=== PATIENT | male | born 1950 | race Caucasian/White ===

== ENCOUNTER 2016-11-04 17:57 | Emergency (ER) | payer MEDICARE, BC ==
[~2016-11-04] VITALS: Ht 175.3 cm; Wt 82.7 kg
[~2016-11-04 17:57] MED LIST: ALLEGRA 180MG180 MG PO; ASPIRIN E.C. 8181 MG PO; BRILINTA90 MG PO; CYMBALTA 60MG60 MG PO; FLEXERIL5 MG PO; LASIX 20MG TABL20 MG PO; LEVAQUIN 5500 MG/TA1 PO; LOPRESSOR 225 MG/TAB PO; MONOPRIL20 MG PO; NITRO-DUR0.2 MG/PAT TD; NITROSTAT0.4 MG/TAB SL; NORVASC 5MG5 MG/TAB PO; NOVLOG SQ; NOVOLOG 100U100 U/M1 SC; PLAVIX 75MG TAB75 MG PO; PRINIVIL10 MG PO; REPATHA SU140 MG/1 M SQ; RISPERDAL 1M1 MG/TAB PO; TOPROL XL 25MG25 MG PO; TOPROL XL 50MG50 MG PO; ULTRAM 50MG TAB50 MG PO; VITAMIN D 50,1.25 MG PO; XANAX .25M0.25 MG/TA PO
[2016-11-04 18:02] VITALS: BP 139/66; TEMP 98.2
[2016-11-04] MEDS ORDERED: DOXYCYCLINE 10100 MG PO (18:10)
[2016-11-04] MEDS ORDERED: NORCO 325 MG-51 TAB PO (20:03)
[2016-11-04 20:05] VITALS: PULSE 71
== END 2016-11-04 20:05 | disposition home or self-care (01) ==
LOC: COL.ER 17:57
DX: S83.91XA Sprain of unspecified site of right knee, initial encounter (principal); I11.0 Hypertensive heart disease with heart failure; I50.9 Heart failure, unspecified; I25.10 Atherosclerotic heart disease of native coronary artery without angina pectoris; E11.9 Type 2 diabetes mellitus without complications; Z79.4 Long term (current) use of insulin; Z79.82 Long term (current) use of aspirin; Z79.02 Long term (current) use of antithrombotics/antiplatelets; X50.0XXA Overexertion from strenuous movement or load, initial encounter; Y92.009 Unspecified place in unspecified non-institutional (private) residence as the place of occurrence of the external cause

== ENCOUNTER 2017-04-01 11:00 | Outpatient (RCR) | payer MEDICARE, BC ==
[~2017-04-01 11:00] MED LIST changes: +DOXYCYCLINE 10100 MG PO; +NORCO 325 MG-51 TAB PO
== END 2017-04-05 | disposition home or self-care (01) ==
LOC: WSOT
DX: Z47.89 Encounter for other orthopedic aftercare (principal); G56.03 Carpal tunnel syndrome, bilateral upper limbs; E10.9 Type 1 diabetes mellitus without complications; Z79.4 Long term (current) use of insulin; Z98.890 Other specified postprocedural states
CPT/HCPCS: G8987-GO; G8988-GO

== ENCOUNTER 2021-04-18 13:47 | Inpatient (IN) | payer MEDICARE, BC ==
[2021-04-17 17:54] VITALS: O2SAT 94
[2021-04-17 17:58] VITALS: O2SAT 99
[2021-04-17 18:01] VITALS: O2SAT 95
[2021-04-17 18:07] VITALS: O2SAT 86
[2021-04-17 18:09] VITALS: O2SAT 85
[2021-04-17 18:13] VITALS: O2SAT 52
[~2021-04-18] VITALS: Ht 175.3 cm; Wt 85.1 kg
[2021-04-18] VITALS (219 sets, daily range): BP systolic 126; BP diastolic 71; PULSE 97; TEMP 98.2; O2SAT 61–100
[2021-04-18 14:19] LABS: HEMATOCRIT 40.1 % (42.0-52.0); HEMOGLOBIN 13.2 g/dl (13.5-18.0); MEAN CELL VOLUME 94 fl (80.0-100.0); MEAN CORPUSCULAR HEMOGLOBIN 31 pg (27-31); MEAN CORPUSCULAR HGB CONC 33 g/dl (33.0-37.0); PLATELET COUNT 164 K/mm3 (130-400); RED BLOOD COUNT 4.29 M/mm3 (4.20-5.60); REDCELL DISTRIBUTION WIDTH-CV 13.9 % (11.5-14.5)
[2021-04-18 14:34] LABS: ACETONE,SERUM SMALL
[2021-04-18 14:37] LABS: ALANINE AMINOTRANSFERASE 136 U/L (0-55); ALBUMIN 3.9 gm/dL (3.4-4.8); ALKALINE PHOSPHATASE 99 U/L (40-150); ANION GAP 29 mmol/L (7-16); AST,SGOT 183 U/L (5-34); BILIRUBIN,TOTAL 1.1 mg/dL (0.2-1.2); BLOOD UREA NITROGEN 93 mg/dL (8-26); CALCIUM 9.1 mg/dL (8.4-10.2); CHLORIDE 90 mmol/L (98-107); CREATININE, serum 4.23 mg/dL (0.72-1.25); LIPASE 33 U/L (8-78); SODIUM 129 mmol/L (136-145); TOTAL PROTEIN 6.7 gm/dL (6.2-8.1)
[2021-04-18 14:48] LABS: TROPONIN-I 17.333 ng/mL (0.00-0.033)
[2021-04-18 14:49] LABS: CARBON DIOXIDE 10 mmol/L (23-31); GLUCOSE 729 mg/dL (70-99)
[2021-04-18 15:28] LABS: BAND 6 % (0-10); LYMPHOCYTE 2 % (20.0-51.0); NEUTROPHILS 89 % (42.0-75.2); PLATELET ESTIMATE NORMAL (NORMAL)
[2021-04-18 16:02] LABS: INR 1.3 (0.8-3.0)
[2021-04-18 16:04] LABS: PARTIAL THROMBOPLASTIN TIME 24.4 SECONDS (26.0-37.0)
--- NOTE | 2021-04-18 16:44 | NUR ---
PT arrived via stretcher from ED with nurse. PT was able to move himself over to the ICU bed with minimal assistance. PT was alert and orientated and appeared in no distress. GTTS on arrival are HEPARIN 1000U/HR and INSULIN 5 U/HR. VSS. PT is NPO but allowed ice chips. Per verbal orders: NS to run at 100 ml/hr until glucose levels are below 250- then initiate D5 1/2 NS at 75ml/hr . central line consent was aquired.
[2021-04-18 18:09] LABS: CALCIUM 8.4 mg/dL (8.4-10.2); CREATININE, serum 4.12 mg/dL (0.72-1.25); MAGNESIUM 2.8 mg/dL (1.6-2.6); PHOSPHOROUS 6.4 mg/dL (2.3-4.7)
[2021-04-18 18:22] LABS: POTASSIUM 5.8 mmol/L (3.5-4.5); TROPONIN-I 13.521 ng/mL (0.00-0.033)
--- NOTE | 2021-04-18 20:00 | NUR ---
PATIENT STATES THAT HE IS ABLE TO VOID WITHOUT DIFFICULTY DOES HAVE ORDERS FOR CATHETER BUT NO CURTAIN PRESENT IN ROOM AND WILL NOT BE AVAILABLE UNTIL AM
[2021-04-18 20:33] LABS: CALCIUM 8.1 mg/dL (8.4-10.2); CREATININE, serum 3.85 mg/dL (0.72-1.25); POTASSIUM 4.7 mmol/L (3.5-4.5)
[2021-04-18 20:42] LABS: TROPONIN-I 11.968 ng/mL (0.00-0.033)
[2021-04-18 23:07] LABS: COLLECTION METHOD CLEAN CATCH
[2021-04-18 23:12] LABS: MUCOUS Present (NOT PRESENT); PH 5 (5-8); SQUAMOUS EPITHELIAL 0-2 /hpf (0-10); URINE APPEARANCE Clear (CLEAR/HAZY); URINE BACTERIA None Seen /hpf (NONE SEEN); URINE BILIRUBIN Negative (NEGATIVE); URINE BLOOD 2+ (NEGATIVE); URINE COLOR Yellow (YELLOW); URINE GLUCOSE 3+ (NEGATIVE); URINE KETONE 1+ (NEGATIVE); URINE LEUKOCYTE ESTERASE Negative (NEGATIVE); URINE NITRATE Negative (NEGATIVE); URINE PROTEIN(semi-quant) Negative (NEGATIVE); URINE RBC 0-2 /hpf (0-2); URINE UROBILINOGEN Negative (NEGATIVE)
[2021-04-19] VITALS (592 sets, daily range): BP systolic 108–166; BP diastolic 50–89; PULSE 74–84; TEMP 98.7–99.2; O2SAT 30–100
[2021-04-19 00:21] LABS: CALCIUM 8.5 mg/dL (8.4-10.2); CREATININE, serum 3.6 mg/dL (0.72-1.25); POTASSIUM 4.2 mmol/L (3.5-4.5)
--- NOTE | 2021-04-19 01:26 | NUR ---
PATIENT IVF CHANGED TO S5 1/2 NS PER ORDERS DUE TO BLOOD SUGAR NOW LESS THAN 250
--- NOTE | 2021-04-19 03:00 | NUR ---
per insulin protocol insuling drip on hold for 30 minutes at this time
--- NOTE | 2021-04-19 03:59 | NUR ---
per insulin drip protocol restarted insulin drip at 2units
[2021-04-19 04:13] LABS: BASO % 0.1 % (0.0-2.0); GRAN # 15.2 K/mm3 (1.4-6.5); GRAN % 86.2 % (42.2-75.2); HEMOGLOBIN 11.5 g/dl (13.5-18.0); LYMPH # 0.9 K/mm3 (1.2-3.4); MEAN CORPUSCULAR HEMOGLOBIN 31 pg (27-31); MEAN CORPUSCULAR HGB CONC 35 g/dl (33.0-37.0); MEAN PLATELET VOLUME 10.8 fl (7.4-10.4); MONO # 1.4 K/mm3 (0.1-0.6); MONO % 7.7 % (1.7-9.3); PLATELET COUNT 134 K/mm3 (130-400); RED BLOOD COUNT 3.68 M/mm3 (4.20-5.60); REDCELL DISTRIBUTION WIDTH-CV 13.6 % (11.5-14.5)
[2021-04-19 04:23] LABS: CALCIUM 8.6 mg/dL (8.4-10.2); CREATININE, serum 3.32 mg/dL (0.72-1.25); POTASSIUM 4.1 mmol/L (3.5-4.5)
[2021-04-19 04:29] LABS: HEMATOCRIT 32.7 % (42.0-52.0); MEAN CELL VOLUME 89 fl (80.0-100.0)
--- NOTE | 2021-04-19 05:05 | NUR ---
0501 call to check status of heparin anti-xa results due to being over an hour since being sent, stated that it was getting ready to post right now per lab. 0505 noted results and drip titration as per protocol with next heparin anti xa lab to be obtained at 1100 am today
--- NOTE | 2021-04-19 07:00 | NUR ---
Assumed care of pt. All lines, GTTs check and verified. VSS.
[2021-04-19 08:51] LABS: CALCIUM 8.8 mg/dL (8.4-10.2); CREATININE, serum 3.17 mg/dL (0.72-1.25); POTASSIUM 4.3 mmol/L (3.5-4.5)
--- NOTE | 2021-04-19 09:00 | NUR ---
PT peripheral IV right AC is occluded. Was removed and monitored for bleeding. Tip intact but bent. Covered with guaze dressing and tape.
--- NOTE | 2021-04-19 11:06 | NUR ---
Heparin lab results came back as 0.0. Following Low dose Heparin protocol PT was bolused 1000 Units and current GTT rate increased by 2.5. Next HEPXA scheduled [id number]. Will continue to monitor for bleeding.
[2021-04-19 11:39] LABS: CALCIUM 8.7 mg/dL (8.4-10.2); CREATININE, serum 3.02 mg/dL (0.72-1.25); POTASSIUM 4.5 mmol/L (3.5-4.5)
--- NOTE | 2021-04-19 12:59 | NUR ---
District Sales Leader visited briefly with patient. Nothing else needed at this time.
--- NOTE | 2021-04-19 14:19 | NUR ---
SW met with patient to complete intake. Patient states that he lives in [facility] with his spouse Isabell [phone]. Patient provides that he does not utilize DME and is independent with ADL's. Patient provides that his PCP is Dr. Ham, pharmacy is [facility]. Patient provide that his spouse is his DPOA-HC, plan is to return to his home upon discharge. Patient had not questions or concerns. SW will continue to follow. DC plan: home with spouse
[2021-04-19 18:53] LABS: CALCIUM 8.4 mg/dL (8.4-10.2); CREATININE, serum 2.69 mg/dL (0.72-1.25); POTASSIUM 4.3 mmol/L (3.5-4.5)
[2021-04-20] VITALS (276 sets, daily range): BP systolic 122–162; BP diastolic 56–95; PULSE 80–88; TEMP 97.9–98.8; O2SAT 100
--- NOTE | 2021-04-20 01:50 | NUR ---
RESULTS OF HEPARIN XA OBTAINED HEPARIN GTT ADJUSTED PER ORDERS AT THIS TIME NEXT HEPARIN XA DUE AT 0750
--- NOTE | 2021-04-20 07:00 | NUR ---
RECEIVED REPORT FROM PITO MILIAN. PT SLEEPING IN BED ON RA. VSS. CALL LIGHT WITHIN REACH. SEE GTT FLOWSHEETS.
[2021-04-20 08:31] LABS: BASO % 0.1 % (0.0-2.0); EOS % 0.1 % (0.0-4.0); GRAN # 13.6 K/mm3 (1.4-6.5); GRAN % 86.4 % (42.2-75.2); HEMOGLOBIN 12.3 g/dl (13.5-18.0); LYMPH % 6.1 % (20.0-51.0); MEAN CELL VOLUME 91 fl (80.0-100.0); MEAN CORPUSCULAR HEMOGLOBIN 31 pg (27-31); MEAN CORPUSCULAR HGB CONC 34 g/dl (33.0-37.0); MEAN PLATELET VOLUME 11.7 fl (7.4-10.4); MONO # 1.1 K/mm3 (0.1-0.6); MONO % 6.8 % (1.7-9.3); PLATELET COUNT 131 K/mm3 (130-400); RED BLOOD COUNT 3.94 M/mm3 (4.20-5.60); REDCELL DISTRIBUTION WIDTH-CV 13.7 % (11.5-14.5)
[2021-04-20 08:37] LABS: HEMATOCRIT 35.8 % (42.0-52.0)
[2021-04-20 08:40] LABS: CALCIUM 8.2 mg/dL (8.4-10.2); CREATININE, serum 2.34 mg/dL (0.72-1.25); POTASSIUM 4.3 mmol/L (3.5-4.5)
--- NOTE | 2021-04-20 10:39 | NUR ---
REPORT CALLED TO PITO VIVEROS. PT TRANSFERRED VIA WC ON RA. ALL PERSONAL BELONGINGS SENT WITH PT. INSULIN PUMP IN PT'S BELONGING BAGS.
--- NOTE | 2021-04-20 11:15 | NUR ---
Patient to room 331 by wheelchair from the ICU. Nurse oriented the patient to location, room and call light. A&Ox4. VSS. IV CDI, fluids infusing. Denies pain and discomfort. Urinal at the bedside. No further needs expressed. Call light within reach
--- NOTE | 2021-04-20 17:51 | NUR ---
Patient has been resting in bed since coming up to the floor. A&Ox4. VSS. IV intact, old draniage, fluids infusing. Denies pain and discomfort. Independent with the urinal. No further needs expressed. Call light within
--- NOTE | 2021-04-20 20:30 | NUR ---
PT RESTING IN BED. NO DISTRESS. HEPARIN GTT INFUSING AT 12CC/H AND NS INFUSING AT 60CC/HR TO RIGHT FEMORAL LINE.
[2021-04-21 04:23] VITALS: BP 138/77; PULSE 85; TEMP 97.9
--- NOTE | 2021-04-21 05:30 | NUR ---
HEPARIN GTT CHANGED TO 10CC/HR PER PROTOCOL. NEXT HEPXA IS 1130.
--- NOTE | 2021-04-21 05:52 | NUR ---
ACCUCHECK 65 THIS AM. JUICE GIVEN.
[2021-04-21 06:32] LABS: BASO % 0.2 % (0.0-2.0); EOS % 0.1 % (0.0-4.0); GRAN # 10.5 K/mm3 (1.4-6.5); GRAN % 81.2 % (42.2-75.2); LYMPH # 1.1 K/mm3 (1.2-3.4); LYMPH % 8.7 % (20.0-51.0); MEAN CELL VOLUME 92 fl (80.0-100.0); MEAN CORPUSCULAR HEMOGLOBIN 32 pg (27-31); MEAN CORPUSCULAR HGB CONC 35 g/dl (33.0-37.0); MEAN PLATELET VOLUME 11.6 fl (7.4-10.4); MONO # 1.1 K/mm3 (0.1-0.6); MONO % 8.7 % (1.7-9.3); PLATELET COUNT 121 K/mm3 (130-400); RED BLOOD COUNT 3.78 M/mm3 (4.20-5.60); REDCELL DISTRIBUTION WIDTH-CV 13.4 % (11.5-14.5)
[2021-04-21 06:39] LABS: HEMATOCRIT 34.6 % (42.0-52.0)
[2021-04-21 06:50] LABS: ALBUMIN 2.8 gm/dL (3.4-4.8); BILIRUBIN,TOTAL 1.2 mg/dL (0.2-1.2); CALCIUM 8.2 mg/dL (8.4-10.2); CREATININE, serum 1.71 mg/dL (0.72-1.25); MAGNESIUM 2.4 mg/dL (1.6-2.6); POTASSIUM 3.7 mmol/L (3.5-4.5); TOTAL PROTEIN 5.2 gm/dL (6.2-8.1)
--- NOTE | 2021-04-21 06:55 | NUR ---
awake resting in bed, bedside shift report received from PITO Mascorro
--- NOTE | 2021-04-21 07:50 | NUR ---
appears to be dozing, awakened and full assessment completed, see interventions for further info, appears to be short of breath after moving around in bed, instructed on ordering breakfast
[2021-04-21 08:00] VITALS: BP 136/69; PULSE 86; TEMP 98.4
--- NOTE | 2021-04-21 08:40 | NUR ---
sitting up on side of bed eating breakfast, denies needs
--- NOTE | 2021-04-21 09:32 | NUR ---
Initial visit; Patient thanked Harness Tier for looking in on him and offering God's blessings though declined spiritual care.
--- NOTE | 2021-04-21 10:39 | NUR ---
appears to be dozing, IV fluids stopped at this time
[2021-04-21 11:17] VITALS: BP 135/67; PULSE 85; TEMP 97.9
--- NOTE | 2021-04-21 11:30 | NUR ---
informed patient to let nurse know when he begins to eat so insulin can be given, verbalizes understanding
[2021-04-21 12:20] LABS: ARTERIAL BLD GAS O2 SATURATION 72.5 % (92-100); ARTERIAL BLOOD GAS HCO3 11.1 meq/L (22-26); ARTERIAL BLOOD GAS PCO2 27.7 mmHg (35-45); ARTERIAL BLOOD GAS PO2 48.1 mmHg (80-100); ARTERIAL BLOOD GAS pH 7.22 (7.35-7.45)
--- NOTE | 2021-04-21 12:51 | NUR ---
shift report given to PITO Holloway
--- NOTE | 2021-04-21 15:00 | NUR ---
Removed R femoral catheter per orders from physican assistant brand manager after PICC line placed to [facility]. Pt tolerated well, pressure held for 5 minutes, no signs of bleeding, denies needs, clean dressing applied, will continue to monitor.
[2021-04-21 15:34] VITALS: BP 136/71; PULSE 85; TEMP 98.5
[2021-04-21 20:21] VITALS: BP 135/55; BP 195/55; PULSE 86; TEMP 99
--- NOTE | 2021-04-21 21:13 | NUR ---
Patient assessed around 1999. Alert and oriented x 4, and able to make needs known. Denies having pain and discomfort at this time. PICC to RUE. Heparin drip running per orders. HepXa was goal, recheck in the morning, per protocol. Telemetry in place. Voices no questions, needs, or concerns at this time. In bed with call light within reach.
[2021-04-22] VITALS (7 sets, daily range): BP systolic 107–140; BP diastolic 55–78; PULSE 84–101; TEMP 97.8–99
--- NOTE | 2021-04-22 06:05 | NUR ---
Patient has denied having pain and discomfort this shift. Continues on Heparin drip per orders. Labs obtained from PICC per protocol. Voices no questions, needs, or concerns at this time. In bed with call light within reach.
[2021-04-22 07:02] LABS: HEMOGLOBIN 11.6 g/dl (13.5-18.0); MEAN CELL VOLUME 91 fl (80.0-100.0); MEAN CORPUSCULAR HEMOGLOBIN 31 pg (27-31); MEAN CORPUSCULAR HGB CONC 34 g/dl (33.0-37.0); MEAN PLATELET VOLUME 12.2 fl (7.4-10.4); PLATELET COUNT 130 K/mm3 (130-400); RED BLOOD COUNT 3.74 M/mm3 (4.20-5.60); REDCELL DISTRIBUTION WIDTH-CV 13.5 % (11.5-14.5)
[2021-04-22 07:04] LABS: HEMATOCRIT 33.9 % (42.0-52.0)
[2021-04-22 07:21] LABS: CALCIUM 8.2 mg/dL (8.4-10.2); CREATININE, serum 1.6 mg/dL (0.72-1.25); POTASSIUM 3.6 mmol/L (3.5-4.5)
[2021-04-22 08:00] LABS: BAND 3 % (0-10); LYMPHOCYTE 8 % (20.0-51.0); NEUTROPHILS 82 % (42.0-75.2)
[2021-04-22 08:01] LABS: PLATELET ESTIMATE NORMAL (NORMAL)
--- NOTE | 2021-04-22 11:06 | NUR ---
sample shoe inspector and reworker met with patient after the physician rounding. Patient is in agreement with PT recommendation and feels as if he is strong enough to return home without any extra supports. Patient will trial his home insulin regimen and depending on how his BGL looks after lunch he will return back home.
[2021-04-22] MEDS ORDERED: NOVOLOG 100U100 U/M1 SQ (11:18)
--- NOTE | 2021-04-22 11:26 | NUR ---
PT RESTING IN BED ATE 50% OF BREAKFAST. REATTACHED INSULIN PUMP AND SIGNED CONTRACT WITH PHARMACY TO SELF MONITOR INSULIN PUMP. PLAN ON DISCHARGE LATER TODAY IF OK WITH CARDS.
--- NOTE | 2021-04-22 19:53 | NUR ---
Patient assessed at this time. Alert and oriented. Denies pain and discomfort. PICC to RUE. HRR. LS CTA in upper lobes, diminished in lower. Respirations even and unlabored. Voices no questions, needs, or concerns at this time. In bed with call light within reach.
[2021-04-23 03:47] VITALS: BP 153/68; PULSE 92; TEMP 98.7
--- NOTE | 2021-04-23 05:26 | NUR ---
Patient has denied pain and discomfort this shift. Voices no questions, needs, or concerns at this time. In bed with call light within reach.
[2021-04-23 06:48] LABS: BASO % 0.1 % (0.0-2.0); EOS # 0.1 K/mm3 (0.0-0.7); EOS % 1.2 % (0.0-4.0); GRAN # 5.8 K/mm3 (1.4-6.5); GRAN % 68.5 % (42.2-75.2); HEMOGLOBIN 11.4 g/dl (13.5-18.0); LYMPH # 1.3 K/mm3 (1.2-3.4); LYMPH % 15.6 % (20.0-51.0); MEAN CELL VOLUME 92 fl (80.0-100.0); MEAN CORPUSCULAR HEMOGLOBIN 32 pg (27-31); MEAN CORPUSCULAR HGB CONC 34 g/dl (33.0-37.0); MEAN PLATELET VOLUME 11.8 fl (7.4-10.4); MONO # 1.1 K/mm3 (0.1-0.6); MONO % 13.2 % (1.7-9.3); PLATELET COUNT 149 K/mm3 (130-400); REDCELL DISTRIBUTION WIDTH-CV 13.7 % (11.5-14.5)
[2021-04-23 06:50] LABS: HEMATOCRIT 33.2 % (42.0-52.0)
[2021-04-23 07:08] LABS: CALCIUM 8.4 mg/dL (8.4-10.2); CREATININE, serum 1.61 mg/dL (0.72-1.25); POTASSIUM 3.7 mmol/L (3.5-4.5)
[2021-04-23 07:59] VITALS: BP 132/63; PULSE 92; TEMP 98.5
--- NOTE | 2021-04-23 08:36 | NUR ---
PT SITTING UP IN BED EATING BREAKFAST. INSULIN PUMP USED BY PT TO BOLUS AND ADMINISTER BASAL RATE. PT DENIES NEEDS. EATING AND DRINKING WITHOUT N/V.
[2021-04-23 11:26] VITALS: BP 137/65; PULSE 94; TEMP 98.3
--- NOTE | 2021-04-23 13:14 | NUR ---
PT HAS AN INSULIN PUMP AND UNABLE TO SCANN SO PT'S OWN MED WAS MANUALLY RECORDED.
--- NOTE | 2021-04-23 15:59 | NUR ---
DISCHARGE INSTSRUCTIONS REVIEWED WITH PT. PT LEFT WITH LILIANE BAEZ.
--- NOTE | 2021-04-23 16:16 | NUR ---
Robotics Application Engineer was notified by RNJeremiah that patient cannot reach his for a ride home and that patient reported he had not had contact with his in two days. SW met with patient to follow up on this. Patient states he has not heard from his in two days, which is not normal for her. Patient reports she has been sick with the "flu" for a couple weeks now. Patient is agreeable to let SW contact [facility] [employer] for a welfare check. NILES contacted [facility] and requested welfare check. NILES received a phone call from Sgt Etienne who advised he was with patient's , Isabell and she appeared to be ill, but refused to be taken to ED by ambulance. Sgt Etienne advised he did not think patient was safe to drive at this time. NILES reviewed the above with patient who advised he is worried about Isabell, but will call an ambulance for her when he gets home. NILES arranged a taxi ride for patient who advised he can pay for a ride home. NILES contacted Isabell on her cell phone (ph#[phone]) and she seemed to be out of breathe. NILES encouraged Isabell to contact 911 if she felt there was an emergency. NILES advised Isabell that patient was discharging home soon via taxi. NILES contacted Dr. Washington's office and left a message. NILES also spoke with Rufina at [facility] who advised she responded to welfare check earlier in the afternoon and patient refused to go to ED.
== END 2021-04-23 14:30 | disposition home or self-care (01) | DRG 280 ==
LOC: COL.ER 13:47 → ICU 15:15 → SURG 15:15
PROVIDERS: Emergency Medicine; Internal Medicine; Physician Assistant; ADMIT Student in an Organized Health Care Education/Training Program
PROC: 06HM33Z Insertion of Infusion Device into Right Femoral Vein, Percutaneous Approach (ICD-10-PCS; principal; 2021-04-18)
PROC: 02HV33Z Insertion of Infusion Device into Superior Vena Cava, Percutaneous Approach (ICD-10-PCS; 2021-04-21)
DX: I21.4 Non-ST elevation (NSTEMI) myocardial infarction (principal); E10.10 Type 1 diabetes mellitus with ketoacidosis without coma; N17.9 Acute kidney failure, unspecified; N18.4 Chronic kidney disease, stage 4 (severe); I50.22 Chronic systolic (congestive) heart failure; R65.10 Systemic inflammatory response syndrome (SIRS) of non-infectious origin without acute organ dysfunction; I25.10 Atherosclerotic heart disease of native coronary artery without angina pectoris; I25.5 Ischemic cardiomyopathy; G31.84 Mild cognitive impairment of uncertain or unknown etiology; E10.22 Type 1 diabetes mellitus with diabetic chronic kidney disease; F32.A Depression, unspecified; E87.5 Hyperkalemia; E86.0 Dehydration; F41.9 Anxiety disorder, unspecified; I27.20 Pulmonary hypertension, unspecified; E78.5 Hyperlipidemia, unspecified; E10.319 Type 1 diabetes mellitus with unspecified diabetic retinopathy without macular edema; Z20.822 Contact with and (suspected) exposure to COVID-19; Z79.82 Long term (current) use of aspirin; Z95.1 Presence of aortocoronary bypass graft; Z88.2 Allergy status to sulfonamides; Z96.41 Presence of insulin pump (external) (internal)
CPT/HCPCS: 99223-AI; 99232-AI; 99233-AI; 99239; C1751; C1892; J0610; J1644; J1815; J2405; J7030

== ENCOUNTER 2021-04-24 11:05 | Inpatient (IN) | payer MEDICARE, BC ==
[~2021-04-24] VITALS: Ht 175.3 cm; Wt 86.4 kg
[2021-04-24] VITALS (205 sets, daily range): BP systolic 105–141; BP diastolic 54–77; PULSE 87–91; TEMP 98.1–98.7; O2SAT 92–100
[~2021-04-24 11:05] MED LIST changes: +NOVOLOG 100U100 U/M1 SQ
[2021-04-24 11:40] LABS: HEMOGLOBIN 11.8 g/dl (13.5-18.0); MEAN CORPUSCULAR HEMOGLOBIN 31 pg (27-31); MEAN CORPUSCULAR HGB CONC 32 g/dl (33.0-37.0); MEAN PLATELET VOLUME 11.6 fl (7.4-10.4); PLATELET COUNT 213 K/mm3 (130-400); RED BLOOD COUNT 3.76 M/mm3 (4.20-5.60); REDCELL DISTRIBUTION WIDTH-CV 14.3 % (11.5-14.5)
[2021-04-24 11:41] LABS: HEMATOCRIT 36.5 % (42.0-52.0); MEAN CELL VOLUME 97 fl (80.0-100.0)
[2021-04-24 11:59] LABS: BAND 9 % (0-10); LYMPHOCYTE 3 % (20.0-51.0); NEUTROPHILS 86 % (42.0-75.2); PLATELET ESTIMATE NORMAL (NORMAL)
[2021-04-24 12:00] LABS: ALANINE AMINOTRANSFERASE 57 U/L (0-55); ALKALINE PHOSPHATASE 111 U/L (40-150); ANION GAP 26 mmol/L (7-16); AST,SGOT 24 U/L (5-34); BILIRUBIN,TOTAL 1.3 mg/dL (0.2-1.2); BLOOD UREA NITROGEN 46 mg/dL (8-26); CALCIUM 8.5 mg/dL (8.4-10.2); CHLORIDE 99 mmol/L (98-107); CREATININE, serum 2.55 mg/dL (0.72-1.25); LIPASE 22 U/L (8-78); SODIUM 135 mmol/L (136-145)
[2021-04-24 12:12] LABS: GLUCOSE 662 mg/dL (70-99); POTASSIUM 6.1 mmol/L (3.5-4.5)
[2021-04-24 12:13] LABS: CARBON DIOXIDE 10 mmol/L (23-31)
[2021-04-24 12:14] LABS: ACETONE,SERUM MODERATE
[2021-04-24 17:09] LABS: CALCIUM 8.3 mg/dL (8.4-10.2); CREATININE, serum 2.4 mg/dL (0.72-1.25); POTASSIUM 5.2 mmol/L (3.5-4.5)
[2021-04-24 19:58] LABS: CALCIUM 8.3 mg/dL (8.4-10.2); CREATININE, serum 2.49 mg/dL (0.72-1.25); MAGNESIUM 2.4 mg/dL (1.6-2.6); PHOSPHOROUS 3.6 mg/dL (2.3-4.7)
[2021-04-24 21:50] LABS: CALCIUM 8.4 mg/dL (8.4-10.2); CREATININE, serum 2.49 mg/dL (0.72-1.25); POTASSIUM 4.1 mmol/L (3.5-4.5)
[2021-04-24 23:55] LABS: CALCIUM 8.7 mg/dL (8.4-10.2); CREATININE, serum 2.33 mg/dL (0.72-1.25); POTASSIUM 4.6 mmol/L (3.5-4.5)
[2021-04-25] VITALS (486 sets, daily range): BP systolic 107–152; BP diastolic 54–70; PULSE 77–91; TEMP 98.1–98.5; O2SAT 77–100
[2021-04-25 02:59] LABS: CALCIUM 8.4 mg/dL (8.4-10.2); CREATININE, serum 2.2 mg/dL (0.72-1.25); POTASSIUM 4.1 mmol/L (3.5-4.5)
[2021-04-25 05:10] LABS: HEMOGLOBIN 10.5 g/dl (13.5-18.0); MEAN CELL VOLUME 94 fl (80.0-100.0); MEAN CORPUSCULAR HEMOGLOBIN 32 pg (27-31); MEAN CORPUSCULAR HGB CONC 34 g/dl (33.0-37.0); MEAN PLATELET VOLUME 10.6 fl (7.4-10.4); PLATELET COUNT 213 K/mm3 (130-400); RED BLOOD COUNT 3.28 M/mm3 (4.20-5.60); REDCELL DISTRIBUTION WIDTH-CV 14.4 % (11.5-14.5)
[2021-04-25 05:26] LABS: CALCIUM 8.3 mg/dL (8.4-10.2); CREATININE, serum 2.19 mg/dL (0.72-1.25); POTASSIUM 4.3 mmol/L (3.5-4.5)
[2021-04-25 05:43] LABS: HEMATOCRIT 30.7 % (42.0-52.0)
[2021-04-25 05:47] LABS: BAND 2 % (0-10); LYMPHOCYTE 10 % (20.0-51.0); NEUTROPHILS 77 % (42.0-75.2)
[2021-04-25 05:48] LABS: ANISOCYTOSIS 2+; HYPOCHROMIA 2+
--- NOTE | 2021-04-25 13:30 | NUR ---
Dispatch Officer met with patient to discuss discharge planning. Patient is a readmit and was discharged on 04/23/21. SW asked patient what brought him back to the hospital and he stated "my is incapacitated at home". This SW met with patient on 04/23/21 (see previous note for further detail) and patient had reported his was sick. SW asked patient if his was okay at home and he then stated yes, she was feeling much better. Patient lives outside of [place] with his , Isabell (ph#[phone]) and sees Dr. Washington for primary care. Patient obtains medications from [facility] and advised he has no difficulty obtaining medications. Patient uses diabetic testing equipment at home and no other DME. Patient reports independence with ADLS. Patient has Advance Directives in EMR which designate his Isabell and his sister, Jones (ph#[phone]). Patient reports he has no children and his parents are . Patient states he plans to return home upon discharge. SW discussed Home Health and it's benefits and how that relates to readmission concerns. Patient is open to this but wants to speak with his first. SW provided Medicare.gov list of HH agencies. SW then spoke with patient's , Isabell who stated she is feeling much better than a couple of days ago and is doing just fine at home. SW discussed HH services with Isabell who felt this would be a good idea for patient and that she will discuss this with him. NILES contacted NILES Aiken at patient's PCP office to provide update. Soledad advised that she and the new nurse caseworker intake will follow patient after he discharges. SW contacted Hospitalist and requested PT/OT. Discharge Plan: Home pending PT/OT evaluation. Possible Home Health services.
[2021-04-25 18:12] LABS: COLLECTION METHOD CLEAN CATCH
[2021-04-25 18:22] LABS: PH 5 (5-8); SQUAMOUS EPITHELIAL None Seen /hpf (0-10); URINE APPEARANCE Clear (CLEAR/HAZY); URINE BACTERIA None Seen /hpf (NONE SEEN); URINE BILIRUBIN Negative (NEGATIVE); URINE BLOOD Negative (NEGATIVE); URINE COLOR Yellow (YELLOW); URINE GLUCOSE 3+ (NEGATIVE); URINE KETONE Trace (NEGATIVE); URINE LEUKOCYTE ESTERASE Negative (NEGATIVE); URINE NITRATE Negative (NEGATIVE); URINE PROTEIN(semi-quant) Negative (NEGATIVE); URINE RBC 0-2 /hpf (0-2); URINE UROBILINOGEN Negative (NEGATIVE); URINE WBC 0-2 /hpf (0-2)
[2021-04-26 00:32] VITALS: BP 147/69; PULSE 88; TEMP 98.2
[2021-04-26 03:48] VITALS: BP 145/73; PULSE 91; TEMP 98.4; TEMP 984
[2021-04-26 07:46] VITALS: BP 144/67; PULSE 93; TEMP 98.4
--- NOTE | 2021-04-26 07:54 | NUR ---
Pt doing okay this am. Reports that his back is bothering him some from the beds. Discussed blood sugar and pt reported that he gave himself 2 units per his insulin pump. Morning medications given. Encouraged him to order some breakfast. Pt still had bandage on right arm from previous picc removal. Bandage removed, site looks good with no redness or drainage. Pt also had a dressing to his right groin which was removed, site has no redness or drainage. All questions answered, call light within reach
[2021-04-26 07:59] LABS: CALCIUM 8.2 mg/dL (8.4-10.2); CREATININE, serum 1.83 mg/dL (0.72-1.25); POTASSIUM 4.3 mmol/L (3.5-4.5)
[2021-04-26 08:21] LABS: BASO % 0.2 % (0.0-2.0); EOS % 0.3 % (0.0-4.0); GRAN # 9.6 K/mm3 (1.4-6.5); GRAN % 78.5 % (42.2-75.2); LYMPH # 1.5 K/mm3 (1.2-3.4); LYMPH % 12.4 % (20.0-51.0); MEAN CELL VOLUME 92 fl (80.0-100.0); MEAN CORPUSCULAR HEMOGLOBIN 31 pg (27-31); MEAN CORPUSCULAR HGB CONC 34 g/dl (33.0-37.0); MONO % 7.9 % (1.7-9.3); PLATELET COUNT 211 K/mm3 (130-400); RED BLOOD COUNT 3.53 M/mm3 (4.20-5.60); REDCELL DISTRIBUTION WIDTH-CV 14.6 % (11.5-14.5)
[2021-04-26 08:26] LABS: HEMATOCRIT 32.6 % (42.0-52.0)
--- NOTE | 2021-04-26 10:46 | NUR ---
PT in with pt at this time assisting him with shower
[2021-04-26 12:35] VITALS: BP 144/70; PULSE 85; TEMP 98.9
--- NOTE | 2021-04-26 12:50 | NUR ---
Pt blood sugar 368. Pt used his pump to give insulin. Pt stated that per the pump, it gave 3.9 units. I informed him that per our sliding scale he would be getting 10 units. Pt did not give the impression that he knew how to adjust pump or give any additional. I did notify Dr Stokes of this and she was going to look in to it
--- NOTE | 2021-04-26 13:47 | NUR ---
Catia Designer followed up with patient on home health services. Patient would like referral sent to [facility]. SW faxed referral.
--- NOTE | 2021-04-26 15:02 | NUR ---
Rechecked blood sugar per Dr Stokes request. Blood sugar was 369, notified Dr Stokes and new orders received
[2021-04-26 15:34] VITALS: BP 146/67; PULSE 85; TEMP 98.2
[2021-04-26 19:53] VITALS: BP 114/50; PULSE 96; TEMP 98.4
--- NOTE | 2021-04-26 20:00 | NUR ---
no IV present on assessment, pt states his RN removed it this morning. will leave out for now per pt request and check with Dr in the morning.
[2021-04-27 00:20] VITALS: BP 125/78; PULSE 85; TEMP 98
[2021-04-27 03:42] VITALS: BP 137/62; PULSE 85; TEMP 97.9
[2021-04-27 06:26] LABS: MEAN CELL VOLUME 91 fl (80.0-100.0); MEAN CORPUSCULAR HEMOGLOBIN 31 pg (27-31); MEAN CORPUSCULAR HGB CONC 35 g/dl (33.0-37.0); MEAN PLATELET VOLUME 10.7 fl (7.4-10.4); PLATELET COUNT 224 K/mm3 (130-400); RED BLOOD COUNT 3.51 M/mm3 (4.20-5.60); REDCELL DISTRIBUTION WIDTH-CV 14.1 % (11.5-14.5)
[2021-04-27 06:29] LABS: HEMATOCRIT 31.8 % (42.0-52.0)
[2021-04-27 06:32] LABS: CALCIUM 8.5 mg/dL (8.4-10.2); CREATININE, serum 1.74 mg/dL (0.72-1.25); POTASSIUM 3.7 mmol/L (3.5-4.5)
--- NOTE | 2021-04-27 07:05 | NUR ---
pt's fasting BGM 35 this am, 240mls OJ given along with PB and crackers, recheck after 15 min up to 50, another 240mls OJ given, recheck up to 77, pt ordered breakfast at 0650. report to PITO Daniels will as Dr Stokes about restarting IV. 0635-this RN notified per lab of BS 38 from this mornings lab draw, pt had already been treated.
[2021-04-27 07:54] VITALS: BP 129/52; PULSE 95; TEMP 98.5
--- NOTE | 2021-04-27 09:59 | NUR ---
PT UP TO RECLINER AFTER AMBULATING WITH THEARPY IN HALLS. PT DENIES NEEDS AT THIS TIME. BG WNL AT THIS TIME. PT ATE BREAKFAST. BED CHANGE COMPLETE.
[2021-04-27 12:03] VITALS: BP 130/63; PULSE 79; TEMP 98
[2021-04-27 16:54] VITALS: BP 128/53; PULSE 86; TEMP 97.9
[2021-04-27 20:30] VITALS: BP 127/63; PULSE 86; TEMP 98.2
[2021-04-28 00:34] VITALS: BP 133/66; PULSE 88; TEMP 97.9
[2021-04-28 04:06] VITALS: BP 130/65; PULSE 91; TEMP 97.7
[2021-04-28 06:46] LABS: HEMOGLOBIN 11.7 g/dl (13.5-18.0); MEAN CELL VOLUME 92 fl (80.0-100.0); MEAN CORPUSCULAR HEMOGLOBIN 32 pg (27-31); MEAN CORPUSCULAR HGB CONC 34 g/dl (33.0-37.0); MEAN PLATELET VOLUME 10.4 fl (7.4-10.4); PLATELET COUNT 231 K/mm3 (130-400); RED BLOOD COUNT 3.71 M/mm3 (4.20-5.60); REDCELL DISTRIBUTION WIDTH-CV 14.5 % (11.5-14.5)
[2021-04-28 06:52] LABS: HEMATOCRIT 34.2 % (42.0-52.0)
[2021-04-28 07:07] LABS: CALCIUM 8.2 mg/dL (8.4-10.2); CREATININE, serum 1.73 mg/dL (0.72-1.25); POTASSIUM 3.7 mmol/L (3.5-4.5)
[2021-04-28 07:10] VITALS: BP 128/63; PULSE 90; TEMP 98.2
--- NOTE | 2021-04-28 08:00 | NUR ---
PATIENT IS A&O AND SITTING UP IN BEDSIDE CHAIR WITH BREAKFAST. A&O. VSS. REPORTS HE SLEPT WELL, NO COMPLAINTS. AM BS WAS 71. PATIENT HAS AN INSULIN PUMP WITH A 0.8 UNIT/HR BASIL. PATIENT REPORTS HE DOES NOT KNOW HOW TO TITRATE HIS PUMP FOR SSI DOSES. HE ONLY KNOWS HOW TO CHANGE HIS CONTINUOUS RATE. NO SSI REQUIRED. TOLERATING ADA DIET WELL. NO C/O N/V. AM MEDS GIVEN. PATIENT SEEMS TO REQUIRE MORE DIABETIC EDUCATION HE HAS REQUIRED HOSPITALIZATIONS FOR DKA. PATIENTS BLOOD SUGARS HAVE BEEN EXTREMELY HIGH AND LOW. NO IV SITE. NOTED. LEFT AC NOTED SEVERAL ABRASIONS, POSSIBLY FROM IV SITES WITH SKIN TEARS FROM TAPE. HEAD TO TOE ASSESSMENT COMPLETE. INDEPENDENT IN ROOM. PT/OT ARE CONSULTED. NO OTHER NEEDS AT THIS TIME. CALL LIGHT IN REACH.
[2021-04-28] MEDS ORDERED: NOVOLOG FLEX100 U/ML SQ (11:30)
[2021-04-28] MEDS ORDERED: INSULIN PEN NE1 EAC1 MC (11:30)
[2021-04-28 11:55] VITALS: BP 130/60; PULSE 76; TEMP 98.4
--- NOTE | 2021-04-28 13:36 | NUR ---
Reinspector attended clinical rounds with the team and patient to discharge home today with home health services. NILES contacted Linnea at [facility] who advised they can accept patient for services. NILES faxed therapy notes and discharge orders. NILES also contacted NILES Rowe his primary care physician's office to notify her of patient discharge. Soledad advised she would contact patient tomorrow to follow up. NILES and NILES student Jose Maria met with patient to review discharge plan. NILES also reviewed IM form with patient who verbalized understanding and provided signature. NILES then placed form in patient's chart and provided copy to patient. Patient advised his was not able to come get him at time of discharge. NILES contacted [facility] who will be here to pickle pumper patient at 1500. NILES confirmed with patient that he has the funds to pay for the taxi ride home. No additional needs at this time.
--- NOTE | 2021-04-28 15:00 | NUR ---
PATIENT DISCHARGING HOME VIA WITH [facility] DUE TO PATIENTS NOT FEELING WELL. GAVE DISCHARGE INSTRUCTIONS, E-SCRIPT & HARD COPY SCRIPT SENT, AND DISCUSSED F/U APT. ANSWERED QUESTIONS/CONCERNS. NO IV SITE. PATIENT IS DRESSED, PACKED & DISCHARGED.
== END 2021-04-28 15:00 | disposition home health service (06) | DRG 638 ==
LOC: COL.ER 11:05 → ICU 15:52 → SURG 04-25 15:00
PROVIDERS: Emergency Medicine; Internal Medicine; Nurse Practitioner Family; Physician Assistant; ADMIT Student in an Organized Health Care Education/Training Program
DX: E10.10 Type 1 diabetes mellitus with ketoacidosis without coma (principal); N18.4 Chronic kidney disease, stage 4 (severe); N17.9 Acute kidney failure, unspecified; I50.22 Chronic systolic (congestive) heart failure; I25.5 Ischemic cardiomyopathy; I27.20 Pulmonary hypertension, unspecified; G31.84 Mild cognitive impairment of uncertain or unknown etiology; F32.A Depression, unspecified; F41.9 Anxiety disorder, unspecified; E78.5 Hyperlipidemia, unspecified; E87.5 Hyperkalemia; E10.319 Type 1 diabetes mellitus with unspecified diabetic retinopathy without macular edema; E10.649 Type 1 diabetes mellitus with hypoglycemia without coma; Z20.822 Contact with and (suspected) exposure to COVID-19; Z95.1 Presence of aortocoronary bypass graft; Z88.2 Allergy status to sulfonamides; Z79.82 Long term (current) use of aspirin; I25.2 Old myocardial infarction; Z23 Encounter for immunization
CPT/HCPCS: 99223-AI; 99232-AI; 99233-AI; 99239; J1644; J1815; J2405; J7030

== ENCOUNTER 2021-05-15 11:35 | Inpatient (IN) | payer MEDICARE, BC ==
[2021-05-15] VITALS (67 sets, daily range): BP systolic 73–120; BP diastolic 43–72; PULSE 84–125; TEMP 97.5–98.7; O2SAT 97–100
[~2021-05-15] VITALS: Ht 175.3 cm; Wt 89.0 kg
[~2021-05-15 11:35] MED LIST changes: +INSULIN PEN NE1 EAC1 MC; +NOVOLOG FLEX100 U/ML SQ
[2021-05-15 12:07] LABS: BASO % 0.2 % (0.0-2.0); GRAN # 6.9 K/mm3 (1.4-6.5); GRAN % 82.4 % (42.2-75.2); LYMPH # 0.9 K/mm3 (1.2-3.4); LYMPH % 10.8 % (20.0-51.0); MEAN CELL VOLUME 100 fl (80.0-100.0); MEAN CORPUSCULAR HGB CONC 31 g/dl (33.0-37.0); MEAN PLATELET VOLUME 9.4 fl (7.4-10.4); MONO # 0.5 K/mm3 (0.1-0.6); MONO % 6.4 % (1.7-9.3); PLATELET COUNT 332 K/mm3 (130-400); RED BLOOD COUNT 2.34 M/mm3 (4.20-5.60); REDCELL DISTRIBUTION WIDTH-CV 15.2 % (11.5-14.5)
[2021-05-15 12:11] LABS: HEMATOCRIT 23.3 % (42.0-52.0); HEMOGLOBIN 7.3 g/dl (13.5-18.0); MEAN CORPUSCULAR HEMOGLOBIN 31 pg (27-31)
[2021-05-15 12:26] LABS: ALANINE AMINOTRANSFERASE 23 U/L (0-55); ALBUMIN 3.1 gm/dL (3.4-4.8); ALKALINE PHOSPHATASE 99 U/L (40-150); ANION GAP 13 mmol/L (7-16); AST,SGOT 28 U/L (5-34); BILIRUBIN,TOTAL 0.7 mg/dL (0.2-1.2); BLOOD UREA NITROGEN 45 mg/dL (8-26); CALCIUM 8.8 mg/dL (8.4-10.2); CARBON DIOXIDE 20 mmol/L (23-31); CHLORIDE 105 mmol/L (98-107); CREATININE, serum 2.43 mg/dL (0.72-1.25); GLUCOSE 218 mg/dL (70-99); LIPASE < 10 U/L (8-78); POTASSIUM 4.9 mmol/L (3.5-4.5); SODIUM 138 mmol/L (136-145); TOTAL PROTEIN 5.7 gm/dL (6.2-8.1)
[2021-05-15 12:35] LABS: ACETONE,SERUM NEGATIVE
[2021-05-15 13:00] LABS: COLLECTION METHOD CLEAN CATCH
[2021-05-15 13:08] LABS: PH 5 (5-8); SQUAMOUS EPITHELIAL None Seen /hpf (0-10); URINE APPEARANCE Clear (CLEAR/HAZY); URINE BACTERIA None Seen /hpf (NONE SEEN); URINE BILIRUBIN Negative (NEGATIVE); URINE BLOOD Negative (NEGATIVE); URINE COLOR Yellow (YELLOW); URINE GLUCOSE 1+ (NEGATIVE); URINE KETONE Trace (NEGATIVE); URINE LEUKOCYTE ESTERASE Negative (NEGATIVE); URINE NITRATE Negative (NEGATIVE); URINE PROTEIN(semi-quant) 1+ (NEGATIVE); URINE RBC 0-2 /hpf (0-2); URINE UROBILINOGEN Negative (NEGATIVE)
[2021-05-15] MEDS ORDERED: INSULIN AS100 UNIT/3 SQ (18:06)
[2021-05-15 20:38] LABS: HEMATOCRIT 25.3 % (42.0-52.0); HEMOGLOBIN 7.8 g/dl (13.5-18.0)
[2021-05-15 20:59] LABS: CALCIUM 8.6 mg/dL (8.4-10.2); CREATININE, serum 3.08 mg/dL (0.72-1.25); MAGNESIUM 2.3 mg/dL (1.6-2.6)
[2021-05-15 21:04] LABS: POTASSIUM 6.7 mmol/L (3.5-4.5)
[2021-05-15 21:30] LABS: ARTERIAL BLD GAS O2 SATURATION 97.5 % (92-100); ARTERIAL BLD GAS TCO2 CT 8.5; ARTERIAL BLOOD GAS BASE EXCESS -16.8 (-2-2); ARTERIAL BLOOD GAS PO2 116.6 mmHg (80-100); ARTERIAL BLOOD GAS pH 7.29 (7.35-7.45)
[2021-05-15 21:31] LABS: ARTERIAL BLOOD GAS PCO2 17.2 mmHg (35-45)
[2021-05-15 21:54] LABS: CALCIUM 8.7 mg/dL (8.4-10.2); CREATININE, serum 3.18 mg/dL (0.72-1.25); MAGNESIUM 2.4 mg/dL (1.6-2.6)
[2021-05-15 21:57] LABS: POTASSIUM 6.8 mmol/L (3.5-4.5)
[2021-05-16] VITALS (747 sets, daily range): BP systolic 104–131; BP diastolic 53–799; PULSE 99–113; TEMP 98–98.8; O2SAT 88–100
[2021-05-16 00:18] LABS: COLLECTION METHOD CATHETER
[2021-05-16 00:26] LABS: MUCOUS Present (NOT PRESENT); PH 5 (5-8); SQUAMOUS EPITHELIAL None Seen /hpf (0-10); URINE APPEARANCE Hazy (CLEAR/HAZY); URINE BACTERIA None Seen /hpf (NONE SEEN); URINE BILIRUBIN Negative (NEGATIVE); URINE BLOOD Negative (NEGATIVE); URINE COLOR Yellow (YELLOW); URINE GLUCOSE 1+ (NEGATIVE); URINE KETONE Trace (NEGATIVE); URINE LEUKOCYTE ESTERASE Negative (NEGATIVE); URINE NITRATE Negative (NEGATIVE); URINE PROTEIN(semi-quant) 2+ (NEGATIVE); URINE RBC 0-2 /hpf (0-2); URINE UROBILINOGEN Negative (NEGATIVE)
[2021-05-16 01:26] LABS: CALCIUM 8.8 mg/dL (8.4-10.2); CREATININE, serum 3.23 mg/dL (0.72-1.25); POTASSIUM 5.4 mmol/L (3.5-4.5)
[2021-05-16 01:38] LABS: TROPONIN-I 32.644 ng/mL (0.00-0.033)
[2021-05-16 04:39] LABS: BASO % 0.1 % (0.0-2.0); GRAN # 8.8 K/mm3 (1.4-6.5); GRAN % 82.9 % (42.2-75.2); LYMPH # 0.8 K/mm3 (1.2-3.4); LYMPH % 7.5 % (20.0-51.0); MEAN CORPUSCULAR HGB CONC 32 g/dl (33.0-37.0); MEAN PLATELET VOLUME 9.5 fl (7.4-10.4); PLATELET COUNT 249 K/mm3 (130-400); RED BLOOD COUNT 2.59 M/mm3 (4.20-5.60); REDCELL DISTRIBUTION WIDTH-CV 16.8 % (11.5-14.5)
[2021-05-16 04:40] LABS: HEMATOCRIT 24.5 % (42.0-52.0); HEMOGLOBIN 7.8 g/dl (13.5-18.0); MEAN CELL VOLUME 95 fl (80.0-100.0); MEAN CORPUSCULAR HEMOGLOBIN 30 pg (27-31)
[2021-05-16 04:56] LABS: CALCIUM 8.9 mg/dL (8.4-10.2); CREATININE, serum 3.21 mg/dL (0.72-1.25); POTASSIUM 4.7 mmol/L (3.5-4.5)
[2021-05-16 05:23] LABS: TROPONIN-I 88.8 ng/mL (0.00-0.033)
[2021-05-16 08:55] LABS: CALCIUM 8.9 mg/dL (8.4-10.2); CREATININE, serum 3.39 mg/dL (0.72-1.25); POTASSIUM 5.2 mmol/L (3.5-4.5)
[2021-05-16 12:40] LABS: CALCIUM 8.7 mg/dL (8.4-10.2); CREATININE, serum 3.53 mg/dL (0.72-1.25); POTASSIUM 5.3 mmol/L (3.5-4.5)
[2021-05-16 17:24] LABS: CREATININE, serum 3.72 mg/dL (0.72-1.25); POTASSIUM 5.3 mmol/L (3.5-4.5)
[2021-05-16 18:16] LABS: HEMATOCRIT 30.1 % (42.0-52.0); HEMOGLOBIN 9.9 g/dl (13.5-18.0)
[2021-05-16 20:16] LABS: CALCIUM 8.6 mg/dL (8.4-10.2); CREATININE, serum 3.87 mg/dL (0.72-1.25); POTASSIUM 5.6 mmol/L (3.5-4.5)
[2021-05-17] VITALS (1071 sets, daily range): BP systolic 104–122; BP diastolic 60–84; PULSE 101–108; TEMP 98–98.7; O2SAT 83–100
[2021-05-17 01:19] LABS: CALCIUM 8.7 mg/dL (8.4-10.2); CREATININE, serum 3.93 mg/dL (0.72-1.25); POTASSIUM 5.1 mmol/L (3.5-4.5)
[2021-05-17 05:20] LABS: CALCIUM 8.3 mg/dL (8.4-10.2); CREATININE, serum 4.09 mg/dL (0.72-1.25); POTASSIUM 5.2 mmol/L (3.5-4.5)
[2021-05-17 05:25] LABS: BASO % 0.2 % (0.0-2.0); GRAN # 11.2 K/mm3 (1.4-6.5); GRAN % 78.6 % (42.2-75.2); LYMPH # 1.5 K/mm3 (1.2-3.4); LYMPH % 10.4 % (20.0-51.0); MEAN CELL VOLUME 91 fl (80.0-100.0); MEAN CORPUSCULAR HGB CONC 33 g/dl (33.0-37.0); MEAN PLATELET VOLUME 9.8 fl (7.4-10.4); MONO # 1.5 K/mm3 (0.1-0.6); MONO % 10.4 % (1.7-9.3); PLATELET COUNT 190 K/mm3 (130-400); RED BLOOD COUNT 3.02 M/mm3 (4.20-5.60); REDCELL DISTRIBUTION WIDTH-CV 17.1 % (11.5-14.5)
[2021-05-17 05:34] LABS: HEMATOCRIT 27.6 % (42.0-52.0); HEMOGLOBIN 9.1 g/dl (13.5-18.0); MEAN CORPUSCULAR HEMOGLOBIN 30 pg (27-31)
[2021-05-17 08:34] LABS: CALCIUM 8.3 mg/dL (8.4-10.2); CREATININE, serum 4.09 mg/dL (0.72-1.25)
[2021-05-17 21:53] LABS: CALCIUM 7.9 mg/dL (8.4-10.2); CREATININE, serum 4.31 mg/dL (0.72-1.25)
[2021-05-18] VITALS (814 sets, daily range): BP systolic 95–102; BP diastolic 55–62; PULSE 84–95; TEMP 97.9–98.9; O2SAT 84–100
[2021-05-18 03:50] LABS: BASO % 0.2 % (0.0-2.0); GRAN # 7.6 K/mm3 (1.4-6.5); LYMPH # 1.2 K/mm3 (1.2-3.4); LYMPH % 11.8 % (20.0-51.0); MEAN CELL VOLUME 92 fl (80.0-100.0); MEAN CORPUSCULAR HGB CONC 33 g/dl (33.0-37.0); MEAN PLATELET VOLUME 9.9 fl (7.4-10.4); MONO # 1.1 K/mm3 (0.1-0.6); MONO % 11.1 % (1.7-9.3); PLATELET COUNT 127 K/mm3 (130-400); RED BLOOD COUNT 2.68 M/mm3 (4.20-5.60); REDCELL DISTRIBUTION WIDTH-CV 16.1 % (11.5-14.5)
[2021-05-18 03:52] LABS: HEMATOCRIT 24.7 % (42.0-52.0); HEMOGLOBIN 8.1 g/dl (13.5-18.0); MEAN CORPUSCULAR HEMOGLOBIN 30 pg (27-31)
[2021-05-18 04:14] LABS: CALCIUM 7.7 mg/dL (8.4-10.2); CREATININE, serum 4.3 mg/dL (0.72-1.25); POTASSIUM 4.3 mmol/L (3.5-4.5)
[2021-05-18 10:35] LABS: HEMATOCRIT 26.2 % (42.0-52.0); HEMOGLOBIN 8.7 g/dl (13.5-18.0)
[2021-05-19] VITALS (827 sets, daily range): BP systolic 98–121; BP diastolic 60–67; PULSE 90–98; TEMP 98.1–99.3; O2SAT 71–100
[2021-05-19 05:17] LABS: BASO % 0.2 % (0.0-2.0); EOS % 0.2 % (0.0-4.0); GRAN # 9.8 K/mm3 (1.4-6.5); GRAN % 76.8 % (42.2-75.2); LYMPH # 1.3 K/mm3 (1.2-3.4); LYMPH % 10.4 % (20.0-51.0); MEAN CELL VOLUME 92 fl (80.0-100.0); MEAN CORPUSCULAR HGB CONC 33 g/dl (33.0-37.0); MEAN PLATELET VOLUME 10.7 fl (7.4-10.4); MONO # 1.5 K/mm3 (0.1-0.6); MONO % 11.5 % (1.7-9.3); PLATELET COUNT 117 K/mm3 (130-400); RED BLOOD COUNT 2.85 M/mm3 (4.20-5.60); REDCELL DISTRIBUTION WIDTH-CV 15.2 % (11.5-14.5)
[2021-05-19 05:24] LABS: HEMATOCRIT 26.1 % (42.0-52.0); HEMOGLOBIN 8.5 g/dl (13.5-18.0); MEAN CORPUSCULAR HEMOGLOBIN 30 pg (27-31)
[2021-05-19 05:31] LABS: CREATININE, serum 4.09 mg/dL (0.72-1.25); POTASSIUM 3.8 mmol/L (3.5-4.5)
[2021-05-20] VITALS (469 sets, daily range): BP systolic 93–121; BP diastolic 53–68; PULSE 76–91; TEMP 98–99.1; O2SAT 69–100
[2021-05-20 07:47] LABS: BASO % 0.2 % (0.0-2.0); EOS # 0.1 K/mm3 (0.0-0.7); EOS % 0.6 % (0.0-4.0); GRAN # 7.8 K/mm3 (1.4-6.5); GRAN % 71.7 % (42.2-75.2); LYMPH # 1.7 K/mm3 (1.2-3.4); LYMPH % 15.2 % (20.0-51.0); MEAN CELL VOLUME 93 fl (80.0-100.0); MEAN CORPUSCULAR HGB CONC 32 g/dl (33.0-37.0); MEAN PLATELET VOLUME 11.1 fl (7.4-10.4); MONO # 1.2 K/mm3 (0.1-0.6); MONO % 11.3 % (1.7-9.3); PLATELET COUNT 110 K/mm3 (130-400); RED BLOOD COUNT 2.95 M/mm3 (4.20-5.60); REDCELL DISTRIBUTION WIDTH-CV 15.4 % (11.5-14.5)
[2021-05-20 07:56] LABS: CALCIUM 7.9 mg/dL (8.4-10.2); CREATININE, serum 3.78 mg/dL (0.72-1.25); POTASSIUM 3.9 mmol/L (3.5-4.5)
[2021-05-20 07:59] LABS: HEMATOCRIT 27.3 % (42.0-52.0); HEMOGLOBIN 8.8 g/dl (13.5-18.0); MEAN CORPUSCULAR HEMOGLOBIN 30 pg (27-31)
[2021-05-21 03:23] VITALS: BP 110/56; PULSE 76; TEMP 98.6
[2021-05-21 07:43] VITALS: BP 117/45; PULSE 78; TEMP 97.8
[2021-05-21 10:48] LABS: CALCIUM 8.1 mg/dL (8.4-10.2); CREATININE, serum 3.53 mg/dL (0.72-1.25); POTASSIUM 4.1 mmol/L (3.5-4.5)
[2021-05-21 11:18] VITALS: BP 107/47; PULSE 68; TEMP 98.3
[2021-05-21 15:52] VITALS: BP 106/51; PULSE 76; TEMP 98.1
[2021-05-21 20:10] VITALS: BP 115/50; PULSE 85; TEMP 98.4
[2021-05-21 23:52] VITALS: BP 114/54; PULSE 79; TEMP 98.5
[2021-05-22 03:25] VITALS: BP 111/55; PULSE 77; TEMP 98.2
[2021-05-22 04:25] LABS: BASO # 0.1 K/mm3 (0.0-0.2); BASO % 0.4 % (0.0-2.0); EOS # 0.2 K/mm3 (0.0-0.7); EOS % 1.8 % (0.0-4.0); GRAN # 8.1 K/mm3 (1.4-6.5); LYMPH % 16.6 % (20.0-51.0); MEAN CELL VOLUME 89 fl (80.0-100.0); MEAN CORPUSCULAR HGB CONC 33 g/dl (33.0-37.0); MEAN PLATELET VOLUME 11.3 fl (7.4-10.4); MONO # 1.3 K/mm3 (0.1-0.6); MONO % 11.4 % (1.7-9.3); PLATELET COUNT 124 K/mm3 (130-400); RED BLOOD COUNT 2.87 M/mm3 (4.20-5.60); REDCELL DISTRIBUTION WIDTH-CV 14.8 % (11.5-14.5)
[2021-05-22 04:26] LABS: HEMATOCRIT 25.6 % (42.0-52.0); HEMOGLOBIN 8.5 g/dl (13.5-18.0); MEAN CORPUSCULAR HEMOGLOBIN 30 pg (27-31)
[2021-05-22 04:41] LABS: CALCIUM 8.4 mg/dL (8.4-10.2); CREATININE, serum 3.39 mg/dL (0.72-1.25); MAGNESIUM 2.2 mg/dL (1.6-2.6); POTASSIUM 3.8 mmol/L (3.5-4.5)
[2021-05-22 07:21] VITALS: BP 106/53; PULSE 79; TEMP 98.2
[2021-05-22 11:58] VITALS: BP 94/48; PULSE 75; TEMP 98.5
[2021-05-22 16:17] VITALS: BP 111/56; PULSE 79; TEMP 98.5
[2021-05-22 20:27] VITALS: BP 102/56; PULSE 86; TEMP 98.8
[2021-05-22 23:57] VITALS: BP 117/52; PULSE 95; TEMP 98.4
[2021-05-23 04:01] VITALS: BP 110/52; PULSE 77; TEMP 98.2
[2021-05-23 04:19] LABS: BASO % 0.4 % (0.0-2.0); EOS # 0.3 K/mm3 (0.0-0.7); EOS % 2.4 % (0.0-4.0); GRAN # 6.8 K/mm3 (1.4-6.5); GRAN % 66.1 % (42.2-75.2); LYMPH # 1.9 K/mm3 (1.2-3.4); LYMPH % 18.1 % (20.0-51.0); MEAN CELL VOLUME 90 fl (80.0-100.0); MEAN CORPUSCULAR HGB CONC 33 g/dl (33.0-37.0); MEAN PLATELET VOLUME 11.2 fl (7.4-10.4); MONO # 1.2 K/mm3 (0.1-0.6); PLATELET COUNT 145 K/mm3 (130-400); RED BLOOD COUNT 2.86 M/mm3 (4.20-5.60); REDCELL DISTRIBUTION WIDTH-CV 15.1 % (11.5-14.5)
[2021-05-23 04:22] LABS: HEMATOCRIT 25.7 % (42.0-52.0); HEMOGLOBIN 8.4 g/dl (13.5-18.0); MEAN CORPUSCULAR HEMOGLOBIN 29 pg (27-31)
[2021-05-23 04:24] LABS: INR 1.4 (0.8-3.0); PROTHROMBIN TIME 15.1 SECONDS (9.7-12.8)
[2021-05-23 04:28] LABS: CALCIUM 8.3 mg/dL (8.4-10.2); CREATININE, serum 3.21 mg/dL (0.72-1.25); MAGNESIUM 2.2 mg/dL (1.6-2.6); POTASSIUM 4.1 mmol/L (3.5-4.5)
[2021-05-23 08:00] VITALS: BP 119/55; PULSE 80; TEMP 97.8
[2021-05-23] MEDS ORDERED: COUMADIN 2MG2 MG/TAB PO (10:55)
[2021-05-23] MEDS ORDERED: LIPITOR 80MG80 MG PO (10:56)
[2021-05-23] MEDS ORDERED: TOPROL XL 50MG50 MG PO (10:56)
[2021-05-23] MEDS ORDERED: PROTONIX 40MG T40 MG PO (10:57)
[2021-05-23] MEDS ORDERED: LASIX 20MG TABL20 MG PO (10:58)
[2021-05-23] MEDS ORDERED: CARAFATE 1GM1 G PO (10:58)
[2021-05-23 11:34] VITALS: BP 110/52; PULSE 77; TEMP 98.2
[2021-05-23] MEDS ORDERED: [UNRECOGNIZED DRUG - SUPPLY] SQ (12:29)
== END 2021-05-23 16:28 | disposition home health service (06) | DRG 280 ==
LOC: COL.ER 11:35 → MEDICAL 14:29 → ICU 14:29 → SURG 05-20 14:30
PROVIDERS: Internal Medicine; Nurse Practitioner Family; Nurse Practitioner Primary Care; Registered Nurse; ADMIT Student in an Organized Health Care Education/Training Program
PROC: 05HM33Z Insertion of Infusion Device into Right Internal Jugular Vein, Percutaneous Approach (ICD-10-PCS; principal; 2021-05-17)
DX: I21.4 Non-ST elevation (NSTEMI) myocardial infarction (principal); R57.0 Cardiogenic shock; N18.4 Chronic kidney disease, stage 4 (severe); I50.42 Chronic combined systolic (congestive) and diastolic (congestive) heart failure; I82.622 Acute embolism and thrombosis of deep veins of left upper extremity; N17.9 Acute kidney failure, unspecified; I25.5 Ischemic cardiomyopathy; I27.20 Pulmonary hypertension, unspecified; E10.319 Type 1 diabetes mellitus with unspecified diabetic retinopathy without macular edema; G31.84 Mild cognitive impairment of uncertain or unknown etiology; F32.A Depression, unspecified; F41.9 Anxiety disorder, unspecified; D64.9 Anemia, unspecified; E87.5 Hyperkalemia; E78.5 Hyperlipidemia, unspecified; I25.10 Atherosclerotic heart disease of native coronary artery without angina pectoris; E86.0 Dehydration; E10.65 Type 1 diabetes mellitus with hyperglycemia; Z95.1 Presence of aortocoronary bypass graft; Z95.810 Presence of automatic (implantable) cardiac defibrillator; I25.2 Old myocardial infarction; Z79.02 Long term (current) use of antithrombotics/antiplatelets; Z79.82 Long term (current) use of aspirin
CPT/HCPCS: 99233-AI; 99239; C9113; J0610; J0696; J1250; J1644; J1815; J1940; J2405; J2550; J7030; P9016

== ENCOUNTER 2021-06-13 13:37 | Emergency (ER) | payer MEDICARE, BC ==
[~2021-06-13] VITALS: Ht 175.3 cm; Wt 91.8 kg
[~2021-06-13 13:37] MED LIST changes: +CARAFATE 1GM1 G PO; +COUMADIN 2MG2 MG/TAB PO; +INSULIN AS100 UNIT/3 SQ; +LIPITOR 80MG80 MG PO; +PROTONIX 40MG T40 MG PO; +[UNRECOGNIZED DRUG - SUPPLY] SQ
[2021-06-13 13:56] VITALS: TEMP 98.9
[2021-06-13 14:32] LABS: BASO # 0.1 K/mm3 (0.0-0.2); BASO % 0.8 % (0.0-2.0); EOS # 0.1 K/mm3 (0.0-0.7); EOS % 1.4 % (0.0-4.0); GRAN # 4.1 K/mm3 (1.4-6.5); GRAN % 65.4 % (42.2-75.2); LYMPH # 1.1 K/mm3 (1.2-3.4); LYMPH % 17.9 % (20.0-51.0); MEAN CELL VOLUME 89 fl (80.0-100.0); MEAN CORPUSCULAR HGB CONC 30 g/dl (33.0-37.0); MEAN PLATELET VOLUME 10.2 fl (7.4-10.4); MONO # 0.9 K/mm3 (0.1-0.6); MONO % 14.3 % (1.7-9.3); PLATELET COUNT 222 K/mm3 (130-400); RED BLOOD COUNT 3.41 M/mm3 (4.20-5.60); REDCELL DISTRIBUTION WIDTH-CV 16.4 % (11.5-14.5)
[2021-06-13 14:33] LABS: HEMATOCRIT 30.4 % (42.0-52.0); HEMOGLOBIN 9.1 g/dl (13.5-18.0); MEAN CORPUSCULAR HEMOGLOBIN 27 pg (27-31)
[2021-06-13 14:40] LABS: INR 8.3 (0.8-3.0); PROTHROMBIN TIME 93.5 SECONDS (9.7-12.8)
[2021-06-13 15:32] VITALS: BP 108/62; PULSE 77
== END 2021-06-13 15:32 | disposition home or self-care (01) ==
LOC: COL.ER 13:37
PROVIDERS: Emergency Medicine
DX: S01.112A Laceration without foreign body of left eyelid and periocular area, initial encounter (principal); D68.8 Other specified coagulation defects; Z79.01 Long term (current) use of anticoagulants; W01.198A Fall on same level from slipping, tripping and stumbling with subsequent striking against other object, initial encounter

== ENCOUNTER 2021-07-11 11:01 | Inpatient (IN) | payer MEDICARE, BC ==
[~2021-07-11] VITALS: Ht 175.3 cm; Wt 79.6 kg
[2021-07-11 12:02] LABS: BASO # 0.1 K/mm3 (0.0-0.2); EOS % 0.4 % (0.0-4.0); LYMPH # 1.2 K/mm3 (1.2-3.4); LYMPH % 14.5 % (20.0-51.0); MEAN CELL VOLUME 87 fl (80.0-100.0); MEAN CORPUSCULAR HGB CONC 29 g/dl (33.0-37.0); MEAN PLATELET VOLUME 10.8 fl (7.4-10.4); MONO # 0.9 K/mm3 (0.1-0.6); MONO % 10.7 % (1.7-9.3); PLATELET COUNT 192 K/mm3 (130-400); RED BLOOD COUNT 3.47 M/mm3 (4.20-5.60); REDCELL DISTRIBUTION WIDTH-CV 18.3 % (11.5-14.5)
[2021-07-11 12:03] LABS: HEMATOCRIT 30.2 % (42.0-52.0); HEMOGLOBIN 8.8 g/dl (13.5-18.0); MEAN CORPUSCULAR HEMOGLOBIN 25 pg (27-31)
[2021-07-11 12:07] LABS: INR 8.3 (0.8-3.0); PROTHROMBIN TIME 94.2 SECONDS (9.7-12.8)
[2021-07-11 12:32] LABS: ALBUMIN 3.2 gm/dL (3.4-4.8); BILIRUBIN,TOTAL 1.4 mg/dL (0.2-1.2); CALCIUM 8.6 mg/dL (8.4-10.2); CREATININE, serum 2.27 mg/dL (0.72-1.25); POTASSIUM 4.3 mmol/L (3.5-4.5)
[2021-07-11 12:44] LABS: TROPONIN-I 0.045 ng/mL (0.00-0.033)
[2021-07-11] MEDS ORDERED: HUMALOG100 U/ML (15:14)
--- NOTE | 2021-07-11 15:53 | NUR ---
PT ARRIVED TO THE FLOOR AT THIS TIME. PT SLID FROM ER BED TO ROOM BET BY WIGGLING OVER. DENIES ANY PAIN OR SOB, WILL RETURN FOR ADMISSION DETAILS SHORTLY.
[2021-07-11] MEDS ORDERED: COUMADIN 2MG2 MG/TAB PO (16:06)
[2021-07-11] MEDS ORDERED: COUMADIN 3MG3 MG/TAB PO (16:07)
[2021-07-11] MEDS ORDERED: NITROSTAT0.4 MG/TAB SL (16:11)
[2021-07-11 16:15] VITALS: BP 112/51; PULSE 70; TEMP 97.7
[2021-07-11] MEDS ORDERED: LASIX 40MG TABL40 MG PO (17:17)
--- NOTE | 2021-07-11 19:00 | NUR ---
PATIENT HAD UNEVENTFUL END OF SHIFT. DENIES ANY CURRENT SOB OR CHEST PAIN. REPORT GIVEN TO PITO JIANG
[2021-07-11 19:46] VITALS: BP 125/57; PULSE 72; TEMP 97.9
[2021-07-12] VITALS (7 sets, daily range): BP systolic 104–125; BP diastolic 50–64; PULSE 67–73; TEMP 97.7–98.2
[2021-07-12 06:20] LABS: BASO # 0.1 K/mm3 (0.0-0.2); BASO % 0.9 % (0.0-2.0); EOS # 0.1 K/mm3 (0.0-0.7); EOS % 0.8 % (0.0-4.0); GRAN # 4.6 K/mm3 (1.4-6.5); GRAN % 71.5 % (42.2-75.2); LYMPH % 15.8 % (20.0-51.0); MEAN CELL VOLUME 89 fl (80.0-100.0); MEAN CORPUSCULAR HGB CONC 28 g/dl (33.0-37.0); MEAN PLATELET VOLUME 11.5 fl (7.4-10.4); MONO # 0.7 K/mm3 (0.1-0.6); MONO % 10.5 % (1.7-9.3); PLATELET COUNT 190 K/mm3 (130-400); RED BLOOD COUNT 3.39 M/mm3 (4.20-5.60); REDCELL DISTRIBUTION WIDTH-CV 18.4 % (11.5-14.5)
[2021-07-12 06:25] LABS: HEMATOCRIT 30.3 % (42.0-52.0); HEMOGLOBIN 8.6 g/dl (13.5-18.0); MEAN CORPUSCULAR HEMOGLOBIN 25 pg (27-31)
[2021-07-12 06:39] LABS: TROPONIN-I 0.04 ng/mL (0.00-0.033)
[2021-07-12 06:41] LABS: INR 8.2 (0.8-3.0); PROTHROMBIN TIME 93.4 SECONDS (9.7-12.8)
[2021-07-12 06:42] LABS: CALCIUM 8.6 mg/dL (8.4-10.2); CREATININE, serum 2.24 mg/dL (0.72-1.25); MAGNESIUM 2.4 mg/dL (1.6-2.6); POTASSIUM 4.4 mmol/L (3.5-4.5)
--- NOTE | 2021-07-12 07:06 | NUR ---
THIS NURSE ADMINISTERED 10UNITS OF INSULIN FOR A BS OF 356, THIS NURSE RELAYED TO ONCOMING SHIFT TO COVER WITH MID DOSE SSI AND PT CONTINUES TO USE OWN INSULIN PUMP. SNACK LEFT AT BEDSIDE. ALL NEEDS MET THIS SHIFT. CALL LIGHT WTIHIN REACH.
--- NOTE | 2021-07-12 10:12 | NUR ---
Scheduled medications given. Shift assessment performed. Patient currently requiring 2L of O2 via nasal cannula. Patient is tachypneic, but denies SOA. Patient denies any pain, discomfort, SOA, or futher needs at this time. VSS. Patient A&O. Call light in reach.
--- NOTE | 2021-07-12 14:28 | NUR ---
NILES met with the pt to complete intake. The pt lives at home with spouse, Isabell [phone]. The pt is independent on all ADLs, but does use a walker and glucometer and needs help with showering sometimes. The pt reports he has a DPOA-HC. PCP is Dr. Rocha and gets medications from [email or web address].\ DC: Home w/
--- NOTE | 2021-07-12 18:12 | NUR ---
Patient has had an ok day. Denies any pain, discomofort, SOA, or further needs at this time. Currently requiring 2L of O2 via nasal cannula. Denies any SOA. VSS. Patient A&O. Call light in reach.
[2021-07-13] VITALS (9 sets, daily range): BP systolic 106–124; BP diastolic 47–56; PULSE 67–79; TEMP 97.3–98
--- NOTE | 2021-07-13 05:35 | NUR ---
PT HAD UNEVENTUFUL SHIFT THIS NIGHT. I&O NOTED AND RECORDED. 1100ML OUT THIS SHIFT. LEFT ARM REMAINS SWOLLEN. THIS NURSE KEPT ARM ELEVATED ALL NIGHT. PT INSTRUCTED TO REPORT CONTINUED SWELLING. ALL NEEDS MET THIS SHIFT. CALL LIGHT WITHIN REACH.
[2021-07-13 06:09] LABS: MEAN CELL VOLUME 85 fl (80.0-100.0); MEAN CORPUSCULAR HGB CONC 29 g/dl (33.0-37.0); PLATELET COUNT 169 K/mm3 (130-400); RED BLOOD COUNT 3.27 M/mm3 (4.20-5.60)
[2021-07-13 06:14] LABS: HEMATOCRIT 27.9 % (42.0-52.0); HEMOGLOBIN 8.1 g/dl (13.5-18.0); MEAN CORPUSCULAR HEMOGLOBIN 25 pg (27-31)
[2021-07-13 06:29] LABS: CALCIUM 8.4 mg/dL (8.4-10.2); CREATININE, serum 2.27 mg/dL (0.72-1.25); POTASSIUM 3.6 mmol/L (3.5-4.5)
[2021-07-13 06:59] LABS: INR 9.4 (0.8-3.0); PROTHROMBIN TIME 106.1 SECONDS (9.7-12.8)
--- NOTE | 2021-07-13 08:17 | NUR ---
PT SITTING UP IN BED. MORNING MEDICATIONS GIVEN. SHIFT ASSESSMENT COMPLETED. PT DENIES ANY PAIN OR NEEDS. CONTINUING TO MONITOR.
--- NOTE | 2021-07-13 16:16 | NUR ---
PT COMPLAINING OF ITCHING THROUGHOUT BODY DURING FFP TRANSFUSION. VSS. HIVES NOTED TO L SHOULDER BLADE. INFUSION PLACED ON STANDBY AND DR. MAYO CONTACTED. INSTRUCTED TO STOP TRANSFUSION ON GIVE PT BENADRYL. WILL CONTINUE TO MONITOR.
--- NOTE | 2021-07-13 17:34 | NUR ---
DRESSING CHANGED TO L HAND SKIN TEAR. ONEIDAE AND JULIETTEAND USED.
--- NOTE | 2021-07-13 17:55 | NUR ---
PT FEELS MUCH BETTER AFTER RECIEVING BENADRYL. PLASMA SENT TO K. DENIES ANY ITCHING AT THIS TIME. WILL CONTINUE TO MONITOR.
--- NOTE | 2021-07-13 18:22 | NUR ---
BBK NOTIFIED THIS RN THAT REACTION WAS LIKELY MORE MENTAL THAN MEDICAL, OR POSSIBLY DUE TO SEASONAL ALLERGIES. BBK STATES THAT THEY WOULD RECOMMEND PROCEEDING WITH THE SECOND UNIT OF FFP. THIS RN INSTRUCTED THAT WE WOULD WAIT FOR PTT PANEL TO RESULT AT 1630, THEN SPEAK WITH THE HOSPITALIST BEFORE STARTING SECOND UNIT. WILL PASS ALONG TO ONCOMING RN.
[2021-07-13 18:39] LABS: INR 2.8 (0.8-3.0); PROTHROMBIN TIME 31.8 SECONDS (9.7-12.8)
--- NOTE | 2021-07-13 18:52 | NUR ---
INR RESULTED AT 2.8, SELMA P.A. INFORMED. THIS RN INSTRUCTED TO HOLD OFF ON SECOND UNIT OF FFP. CARLOTTA RUIZ RN AWARE.
[2021-07-14 03:19] VITALS: BP 124/55; PULSE 73; TEMP 97.9
--- NOTE | 2021-07-14 06:30 | NUR ---
ASSESSMENT COMPLETE FOR THIS SHIFT. PT RESTING IN BED NAPPING. PT DENIED PAIN, PALPITATIONS, N,V,D SOB OR DIZZINESS. PT HAD A PRETTY UNEVENTFUL NIGHT ALL THE WAY UP TO ABOUT 0600, WHEN HE BLOOD SUGAR WAS TAKEN AND IT WAS 43. PT GIVEN OJ AND GRAMCRACKERS. PT'S BS WAS TAKEN AGAIN ABOUT 25 MINUTES LATER AND IT IZA TO 73. WILL PASS ON TO DAYSHIFT RN. PT EXPRESSED NO OTHER NEEDS AT THIS TIME. CALL LIGHT WITHIN REACH.
[2021-07-14 06:38] LABS: MEAN CELL VOLUME 85 fl (80.0-100.0); MEAN CORPUSCULAR HGB CONC 30 g/dl (33.0-37.0); MEAN PLATELET VOLUME 11.3 fl (7.4-10.4); PLATELET COUNT 177 K/mm3 (130-400); RED BLOOD COUNT 3.43 M/mm3 (4.20-5.60); REDCELL DISTRIBUTION WIDTH-CV 18.2 % (11.5-14.5)
[2021-07-14 06:40] LABS: HEMATOCRIT 29.2 % (42.0-52.0); HEMOGLOBIN 8.6 g/dl (13.5-18.0); MEAN CORPUSCULAR HEMOGLOBIN 25 pg (27-31)
[2021-07-14 06:53] LABS: PROTHROMBIN TIME 22.8 SECONDS (9.7-12.8)
[2021-07-14 06:59] LABS: CALCIUM 8.8 mg/dL (8.4-10.2); CREATININE, serum 2.51 mg/dL (0.72-1.25); POTASSIUM 3.2 mmol/L (3.5-4.5)
[2021-07-14 07:16] VITALS: BP 115/52; PULSE 81; TEMP 97.7
--- NOTE | 2021-07-14 09:46 | NUR ---
PT SITTING UP IN RECLINER. MORNING MEDICATIONS GIVEN. SHIFT ASSESSMENT COMPLETED. PT CURRENTLY REQUIRING 2L VIA NC, MOSTLY WHEN AMBULATING. DENIES ANY PAIN AT THIS TIME. LUE HAS 2+ PITTING EDEMA, INSTRUCTED PT TO TRY TO KEEP ARM ELEVATED. UPDATED ON POC. PT AMBULATING WELL AROUND ROOM. WILL CONTINUE TO MONITOR.
[2021-07-14 11:10] VITALS: BP 133/57; PULSE 80; TEMP 98
--- NOTE | 2021-07-14 13:03 | NUR ---
First visit from the cabin worker. NO needs right now.
[2021-07-14 15:46] VITALS: BP 118/56; PULSE 77; TEMP 97.5
--- NOTE | 2021-07-14 17:29 | NUR ---
DRESSING TO L HAND SKIN TEAR CHANGED AT THIS TIME.
[2021-07-14 19:55] VITALS: BP 114/75; PULSE 80; TEMP 98.3
--- NOTE | 2021-07-14 20:30 | NUR ---
Pt resting in bed during assessment. Pt does have dressing to his left hand that is reported a skin tear, drsg is CDI. Pt also has a scratch to his left shoulder blade. Pts left arm has significant edema compared to the right. Right arm appears normal. Both feet have some redness approximately mid foot to a couple of his toes, pt reports this is normal for him. He is aware that he is on a fluid restriction. Instructed pt to continue using the urinal for voiding so that we can accurately document his output. Pt denies needs, call light within reach
[2021-07-15 00:40] VITALS: BP 112/52; PULSE 71; TEMP 97.8
--- NOTE | 2021-07-15 01:28 | NUR ---
Report received from PITO Chowdary. Patient resting in bed with eyes closed. No acute distress noted. Call light in reach. Will continue to monitor.
[2021-07-15 04:50] VITALS: BP 110/50; PULSE 69; TEMP 97.9
[2021-07-15 06:22] LABS: BASO # 0.1 K/mm3 (0.0-0.2); BASO % 0.8 % (0.0-2.0); EOS # 0.2 K/mm3 (0.0-0.7); EOS % 2.9 % (0.0-4.0); GRAN # 3.8 K/mm3 (1.4-6.5); GRAN % 64.4 % (42.2-75.2); LYMPH # 1.1 K/mm3 (1.2-3.4); LYMPH % 18.3 % (20.0-51.0); MEAN CELL VOLUME 88 fl (80.0-100.0); MEAN CORPUSCULAR HGB CONC 29 g/dl (33.0-37.0); MONO # 0.8 K/mm3 (0.1-0.6); MONO % 13.3 % (1.7-9.3); PLATELET COUNT 179 K/mm3 (130-400); RED BLOOD COUNT 3.18 M/mm3 (4.20-5.60); REDCELL DISTRIBUTION WIDTH-CV 18.2 % (11.5-14.5)
[2021-07-15 06:29] LABS: MEAN CORPUSCULAR HEMOGLOBIN 25 pg (27-31)
[2021-07-15 06:31] LABS: INR 1.6 (0.8-3.0); PROTHROMBIN TIME 17.5 SECONDS (9.7-12.8)
[2021-07-15 06:43] LABS: CALCIUM 8.7 mg/dL (8.4-10.2); CREATININE, serum 2.34 mg/dL (0.72-1.25); MAGNESIUM 2.4 mg/dL (1.6-2.6); POTASSIUM 3.6 mmol/L (3.5-4.5)
[2021-07-15 07:55] VITALS: BP 110/52; PULSE 69; TEMP 98.1
--- NOTE | 2021-07-15 09:41 | NUR ---
PT SITTING UP IN BED. MORNING MEDICATIONS GIVEN. SHIFT ASSESSMENT COMPLETED. PT DENIES ANY PAIN. PT STILL HAS EDEMA TO LUE, URINE OUTPUT IS GOOD. OXYGEN TITRATED DOWN TO 1L VIA NC. DENIES NEEDS AT THIS TIME. WILL CONTINUE TO MONITOR.
--- NOTE | 2021-07-15 11:30 | NUR ---
PT is recommending home health. NILES met with the patient to discuss their recommendation and review discharge plan. The patient confirms that he plans on returning home with his . He states that he used to have home health services from [facility], but they have been discontinued. He states he is not interested in starting up home health again upon discharge. NILES presented and read the IM form outloud to the patient. The patient verbalized understanding and of agreement to discharge today or tomorrow. He signed the form. NILES provided him with a copy. No additional needs at this time. *Discharge plan: home with *
[2021-07-15 12:24] VITALS: BP 149/90; PULSE 71; TEMP 98.4
[2021-07-15] MEDS ORDERED: LASIX 40MG TABL40 MG PO (15:02)
[2021-07-15] MEDS ORDERED: COUMADIN 2MG2 MG/TAB PO (15:06)
[2021-07-15] MEDS ORDERED: JARDIANCE10 PO (15:06)
[2021-07-15 16:17] VITALS: BP 104/48; PULSE 76; TEMP 97.5
--- NOTE | 2021-07-15 17:39 | NUR ---
DISCHARGE INSTRUCTIONS GIVEN WITH AT BEDSIDE. IV D/C. ALL QUESTIONS ANSWERED. WILL ESCORT PT OFF OF UNIT.
[2021-07-23] MEDS ORDERED: COUMADIN 1MG1 MG/TAB PO (13:12)
== END 2021-07-15 17:39 | disposition home or self-care (01) | DRG 291 ==
LOC: COL.ER 11:01 → MEDICAL 13:40
PROVIDERS: Emergency Medicine; Physician Assistant; ADMIT Internal Medicine
DX: I13.0 Hypertensive heart and chronic kidney disease with heart failure and stage 1 through stage 4 chronic kidney disease, or unspecified chronic kidney disease (principal); I50.23 Acute on chronic systolic (congestive) heart failure; J96.01 Acute respiratory failure with hypoxia; R04.2 Hemoptysis; N18.9 Chronic kidney disease, unspecified; I25.10 Atherosclerotic heart disease of native coronary artery without angina pectoris; D64.9 Anemia, unspecified; I25.5 Ischemic cardiomyopathy; I27.20 Pulmonary hypertension, unspecified; Z66 Do not resuscitate; E78.5 Hyperlipidemia, unspecified; F41.9 Anxiety disorder, unspecified; F32.A Depression, unspecified; R79.1 Abnormal coagulation profile; E10.22 Type 1 diabetes mellitus with diabetic chronic kidney disease; E10.319 Type 1 diabetes mellitus with unspecified diabetic retinopathy without macular edema; E10.649 Type 1 diabetes mellitus with hypoglycemia without coma; Z95.0 Presence of cardiac pacemaker; Z95.810 Presence of automatic (implantable) cardiac defibrillator; Z95.1 Presence of aortocoronary bypass graft; Z79.82 Long term (current) use of aspirin; Z79.4 Long term (current) use of insulin; I25.2 Old myocardial infarction; Z86.718 Personal history of other venous thrombosis and embolism; Z79.01 Long term (current) use of anticoagulants; Z23 Encounter for immunization
CPT/HCPCS: 99223-AI; 99232-AI; 99233-AI; 99239; A9270; J1200; J1815; J1940

== ENCOUNTER 2021-09-02 00:04 | Inpatient (IN) | payer MEDICARE, BC ==
[~2021-09-02] VITALS: Ht 175.3 cm; Wt 86.8 kg
[~2021-09-02 00:04] MED LIST changes: +COUMADIN 1MG1 MG/TAB PO; +COUMADIN 3MG3 MG/TAB PO; +HUMALOG100 U/ML; +JARDIANCE10 PO; +LASIX 40MG TABL40 MG PO
[2021-09-02 00:22] LABS: BASO # 0.1 K/mm3 (0.0-0.2); BASO % 0.8 % (0.0-2.0); EOS # 0.2 K/mm3 (0.0-0.7); EOS % 2.7 % (0.0-4.0); GRAN % 70.3 % (42.2-75.2); LYMPH % 14.3 % (20.0-51.0); MEAN CELL VOLUME 83 fl (80.0-100.0); MEAN CORPUSCULAR HGB CONC 27 g/dl (33.0-37.0); MEAN PLATELET VOLUME 10.6 fl (7.4-10.4); MONO # 0.8 K/mm3 (0.1-0.6); MONO % 10.9 % (1.7-9.3); PLATELET COUNT 197 K/mm3 (130-400); RED BLOOD COUNT 4.12 M/mm3 (4.20-5.60); REDCELL DISTRIBUTION WIDTH-CV 20.6 % (11.5-14.5)
[2021-09-02 00:24] LABS: HEMOGLOBIN 9.1 g/dl (13.5-18.0); MEAN CORPUSCULAR HEMOGLOBIN 22 pg (27-31)
[2021-09-02 00:31] LABS: INR 1.8 (0.8-3.0); PROTHROMBIN TIME 21.1 SECONDS (9.7-12.8)
[2021-09-02 00:33] LABS: PARTIAL THROMBOPLASTIN TIME 32.9 SECONDS (26.0-37.0)
[2021-09-02 00:43] LABS: ALBUMIN 3.1 gm/dL (3.4-4.8); BILIRUBIN,TOTAL 1.1 mg/dL (0.2-1.2); CALCIUM 8.6 mg/dL (8.4-10.2); CREATININE, serum 2.22 mg/dL (0.72-1.25); POTASSIUM 4.6 mmol/L (3.5-4.5); TOTAL PROTEIN 6.3 gm/dL (6.2-8.1)
[2021-09-02 00:58] LABS: TROPONIN-I 0.204 ng/mL (0.00-0.033)
[2021-09-02] MEDS ORDERED: COUMADIN 3MG3 MG/TAB PO (01:57)
[2021-09-02 05:09] VITALS: BP 132/69; PULSE 77; TEMP 97.3
--- NOTE | 2021-09-02 05:59 | NUR ---
Pt to floor at approximately 0410. Assessment completed without difficulty. BASIM Waddell in to see pt after arrival. No complaints of pain, all other needs met at this time. Call light within reach.
[2021-09-02 07:46] VITALS: BP 126/73; PULSE 81; TEMP 97.8
--- NOTE | 2021-09-02 08:25 | NUR ---
MRI CALLED THIS NURSE ET STATES THAT THEY WILL PLAN ON DOING PT'S MRI TOMORROW MORNING, ARE UNABLE TO DO SO TODAY R/T PT'S PACEMAKER. WILL PASS ONTO ON-CALL PROVIDER.
--- NOTE | 2021-09-02 08:45 | NUR ---
PT IS SLEEPING, AWAKENS EASILY TO NAME. RESPIRATIONS UNLABORED. PT HAS INSULIN PUMP ON HIS RIGHT LOWER ABDOMEN, IS BLINKING RED. PT STATES THAT MEANS THE INSULIN IS RUNNING LOW. PT IS ORIENTED X3, REMINDED TO CALL FOR ASSISTANCE, VERBALIZES UNDERSTNADING. CALL LIGHT WITHIN REACH, BED ALARM IS ON. SEIZURE PRECAUTIONS IN PLACE.
--- NOTE | 2021-09-02 10:24 | NUR ---
DEVICE DOWNLOAD COMPLETED ET PLACED ON PT'S CHART.
[2021-09-02 11:15] VITALS: BP 129/65; PULSE 75; TEMP 97.9
--- NOTE | 2021-09-02 12:57 | NUR ---
Monica: No sikhism preference Situation: Precision Honing Machine Operator stopped by room on rounds Background: PT seemed well content Assessment: PT was ordering breakfast and was doing well Recommendation: production associate will follow up as needed
--- NOTE | 2021-09-02 13:34 | NUR ---
Revenue Tax Specialist met with patient to discuss discharge planning. Patient lives in [place] with his , Isabell (ph#[phone]) and sees Dr. Washington for primary care. Patient obtains medications from [facility] with no difficulties and has a walker at home. Patient reports independence with ADLS and plans to return home at time of discharge. Patient denies any Home Health services at this time. SW discussed PT recommendation for outpatient PT at discharge. Patient states he will think about this. Patient stated his , Isabell is his DPOA-HC. SW attempted to contact Isabell and left a message. Discharge Plan: Home
[2021-09-02 15:10] VITALS: BP 120/63; PULSE 79; TEMP 97.9
--- NOTE | 2021-09-02 16:26 | NUR ---
PT RESTING IN BED WITH EYES CLOSED, AWAKENS EASILY TO NAME. PT'S SPOUSE HAS BEEN HERE TO VISIT ET BRING PT'S INSULIN SUPPLIES. PT HAD GIVEN SELF A BOLUS DOSE OF INSULIN WITH LUNCH. PT INSULIN PUMP AGREEMENT WAS REVIEWED WITH PT, SIGNED ET PLACED ON CHART, PT DEMONSTRATES UNDERSTNADING. SEIZURE PRECAUTIONS REMAIN IN PLACE. PT HAS PITTING +2 EDEMA ON ALL EXTREMITIES. PT DID HAVE A COUGHING EPISODE @ LUNCH WHERE PT STATES THAT WHILE EATING HE HAD SWALLOWED A PIECE OF MEAT DOWN THE "WRONG PIPE", PT ENCOURAGED TO CHEW FOOD THOROUGHLY ET TO SIT @ 45 DEGREES WHEN EATING IN BED, VERBALIZES UNDERSTANDING.
[2021-09-02 19:24] VITALS: BP 116/63; PULSE 85; TEMP 98.4
[2021-09-03 00:26] VITALS: BP 125/71; PULSE 82; TEMP 98.5
--- NOTE | 2021-09-03 02:27 | NUR ---
Pt has had a quiet shift thus far. Currently laying in bed, watching television. Assessment and med pass completed without difficulty. Pt cooperative throughout the shift. Pt somewhat restless due to cough; no issues with 02 saturation. Pt still on lasix drip. Seizure precautions still in place. No other complaints at this time, call light within reach.
[2021-09-03 04:37] VITALS: BP 132/74; PULSE 79; TEMP 98.8
--- NOTE | 2021-09-03 06:33 | NUR ---
Patient is restless this morning. Cherise has full outpatine schedule. Will wait till after MRI is obtained. Will check back with RN later today.
[2021-09-03 06:34] LABS: BASO # 0.1 K/mm3 (0.0-0.2); BASO % 0.7 % (0.0-2.0); EOS # 0.1 K/mm3 (0.0-0.7); EOS % 0.9 % (0.0-4.0); GRAN # 5.5 K/mm3 (1.4-6.5); GRAN % 72.4 % (42.2-75.2); LYMPH % 13.8 % (20.0-51.0); MEAN CELL VOLUME 79 fl (80.0-100.0); MEAN CORPUSCULAR HGB CONC 28 g/dl (33.0-37.0); MONO # 0.9 K/mm3 (0.1-0.6); MONO % 11.8 % (1.7-9.3); PLATELET COUNT 230 K/mm3 (130-400); RED BLOOD COUNT 4.28 M/mm3 (4.20-5.60); REDCELL DISTRIBUTION WIDTH-CV 20.9 % (11.5-14.5)
[2021-09-03 06:40] LABS: HEMATOCRIT 33.9 % (42.0-52.0); HEMOGLOBIN 9.6 g/dl (13.5-18.0); MEAN CORPUSCULAR HEMOGLOBIN 22 pg (27-31)
[2021-09-03 07:41] VITALS: BP 121/67; PULSE 74; TEMP 97.6
--- NOTE | 2021-09-03 10:11 | NUR ---
PT RESTING IN BED, HAS BEEN GIVEN BED BATH, LINENS CHANGED, SEIZURE PRECAUTIONS REMAIN IN PLACE. PT IS QUIET BUT ORIENTED X3, CAN BE FORGETFUL @ TIMES. PT REMINDED TO INFORM STAFF WHEN HE IS GIVING HIMSELF INSULIN, VERBALIZES UNDERSTANDING. PT STATES THAT HE HAS SOME INTERMITTENT LOWER BACK PAIN R/T FALL, PA STUDENT KATHY HAS BEEN MADE AWARE. LASIX GTT CONTINUES INFUSING INTO RIGHT AC PERIPHERAL IV.
--- NOTE | 2021-09-03 10:43 | NUR ---
LASIX GTT PLACED ON STANDBY. PT IS TRANSFERRED TO MRI VIA WC.
[2021-09-03 11:53] VITALS: BP 134/77; PULSE 75; TEMP 97.4
--- NOTE | 2021-09-03 12:01 | NUR ---
PT HAS RETURNED FROM MRI. LASIX GTT RESUMED.
[2021-09-03 16:07] VITALS: BP 120/72; PULSE 78; TEMP 97.8
--- NOTE | 2021-09-03 18:27 | NUR ---
PT IN BED WITH HOB ELEVATED 45 DEGREES TO EAT DINNER. PT'S SPOUSE IS @ BEDSIDE. PT HAS BEEN DROWSY MOST OF DAY BUT AROUSES EASILY TO NAME ET IS ORIENTED WHEN ASKED QUESTIONS. SEIZURE PRECAUTIONS REMAIN IN PLACE. LASIX GTT INFUSING. PT IS UTILIZING HIS OWN INSULIN PUMP.
[2021-09-03 20:42] VITALS: BP 122/63; PULSE 80; TEMP 97.7
[2021-09-04] VITALS (7 sets, daily range): BP systolic 103–132; BP diastolic 56–68; PULSE 68–83; TEMP 97.4–98.6
--- NOTE | 2021-09-04 02:43 | NUR ---
PATIENT HAS BEEN DROWSY MOST OF SHIFT. HS MEDS PER EMAR. IV TO R AC CAME OUT AND WAS RESTARTED BY BOSTON SHELDON TO R AC. LASIX GTT WAS OFF FOR 1 HOUR, THEN RESTARTED. PATIENT HAS BEEN UTILIZING PERSONAL INSULIN PUMP.
[2021-09-04 06:18] LABS: BASO # 0.1 K/mm3 (0.0-0.2); BASO % 0.6 % (0.0-2.0); EOS # 0.2 K/mm3 (0.0-0.7); GRAN # 5.6 K/mm3 (1.4-6.5); GRAN % 70.5 % (42.2-75.2); LYMPH # 1.2 K/mm3 (1.2-3.4); LYMPH % 14.9 % (20.0-51.0); MEAN CELL VOLUME 79 fl (80.0-100.0); MEAN CORPUSCULAR HEMOGLOBIN 22 pg (27-31); MEAN CORPUSCULAR HGB CONC 28 g/dl (33.0-37.0); MEAN PLATELET VOLUME 11.3 fl (7.4-10.4); MONO # 0.9 K/mm3 (0.1-0.6); MONO % 11.7 % (1.7-9.3); PLATELET COUNT 216 K/mm3 (130-400); RED BLOOD COUNT 4.48 M/mm3 (4.20-5.60)
[2021-09-04 06:19] LABS: HEMATOCRIT 35.3 % (42.0-52.0)
[2021-09-04 06:22] LABS: INR 1.9 (0.8-3.0); PROTHROMBIN TIME 22.2 SECONDS (9.7-12.8)
[2021-09-04 10:07] LABS: CALCIUM 8.6 mg/dL (8.4-10.2); CREATININE, serum 2.35 mg/dL (0.72-1.25); POTASSIUM 4.1 mmol/L (3.5-4.5)
--- NOTE | 2021-09-04 10:44 | NUR ---
PT RESTING IN BED, MOSTLY SLEEPS, WAS UP TO CHAIR FOR A SHORT WHILE BUT BECAME DROWSY. RESPIRATIONS UNLABORED. PT DOES REPORT SOME LOWER BACK PAIN INTERMITTENTLY WHEN HE MOVES, BUT STATES THAT BREATHING FEELS EASIER TODAY THAN YESTERDAY. SEIZURE PRECAUTIONS REMIAN IN PLACE. LASIX GTT INFUSING INTO RIGHT AC. PT IS ORIENTED X3 WHEN AWAKE, IS USING HIS OWN INSULIN PUMP. BED ALARM IS ON.
--- NOTE | 2021-09-04 10:55 | NUR ---
Weight Trainer received a return call from patient's , Isabell. NILES discussed discharge planning with Isabell and advised patient had stated he plans on returning home at time of discharge. Isabell advised the hospitalist tried to discuss SNF with patient, but she's not sure if he will be agreeable. Isabell advised they have also talked about hospice services. Isabell asked about Home Health services but also remarked that patient has had this set up in the past, but then "changes his mind". Isabell stated she will be in this afternoon to continue this discussion with patient. NILES provided the above update to Terri, Palliative RN who was consulted for patient.
--- NOTE | 2021-09-04 12:29 | NUR ---
Met with patient, his , and NILES Day at bedside. Discussed various options for discharge. had questions about skilled care versus hospice care. Vern expressed concern that he and his have never really discussed if there is no treatment option left for his heart failure. I encouraged them to discuss things and what Vern wants out of his care and gave them my contact information. We plan to talk again tomorrow after they have had a chance to discuss things.
--- NOTE | 2021-09-04 12:35 | NUR ---
Meat Carrier and Palliative RN met with patient and patient's to discuss discharge options and goals of care. Patient advised he prefers to return home at discharge but would consider SNF as his feels this would be beneficial. Patient agreeable to SNF referrals but wants to continue having these discussions with his before deciding. NILES contacted [facility], [facility] [email or web address], and [facility] then faxed referral.
--- NOTE | 2021-09-04 14:46 | NUR ---
PT TRANSFERRED VIA WC TO RADIOLOGY FOR THORACENTESIS @ THIS TIME. LASIX GTT PLACED ON STANDBY.
[2021-09-04 15:37] LABS: PLEURAL FLUID RBC 2000 /mm3 (0-0); PLEURAL FLUID WBC 118 /mm3
[2021-09-04 15:38] LABS: PLEURAL FLUID COLOR YELLOW
[2021-09-04 15:39] LABS: PLEURAL FLUID APPEARANCE HAZY
--- NOTE | 2021-09-04 16:04 | NUR ---
PT HAS ARRIVED BACK TO ROOM FROM THORACENTESIS. PT IS DROWSY, IN BED, DENIES ANY SOB OR CHEST PAIN. PT STATES THAT HE DOES FEEL BETTER. LASIX GTT INTO RIGHT AC RESUMED. BED ALARM IS ON.
--- NOTE | 2021-09-04 16:54 | NUR ---
PT IS SITTING UP IN BED WITH HEAD ELEVATED, EATING DINNER, ALERT @ THIS TIME. PT WAS ASSISTED TO REPOSITION IN BED WITH 2 ASSIST, WAS SEEN @ THAT TIME THAT SEROSANGUINEOUS FLUID HAS SATURATED BAND-AID COVERING PUNCTURE SITE. PT CONTINUES TO DENY ANY SOB OR CHEST PAIN. RESPIRATIONS UNLABORED ON RA.
--- NOTE | 2021-09-04 18:15 | NUR ---
PT HAS NOT HAD ANY NEW DRAINAGE FROM PUNCTURE SITE. BAND-AID HAS BEEN CHANGED.
--- NOTE | 2021-09-04 21:44 | NUR ---
Patient asssessed around 2039. Alert and oriented. Denies pain and discomfort. Reports no SOB/dyspnea, stating that he is feeing much better after left sided thoracentesis. LS CTA to all right lung aguirre, CTA in left upper lobe, diminished left lower lobe. Peripheral IV to right AC with Lasix drip running per orders. Using bedside urinal. 1+ edema BLE, 2+ BUE. Mepilex on bottom CDI. Voices no questions, needs, or concerns at this time. In bed with call light within reach. Bed alarm on.
[2021-09-04 23:07] LABS: BODY FLUID PH (AMS) 8 (())
[2021-09-05 03:21] LABS: COLLECTION METHOD CLEAN CATCH
[2021-09-05 03:32] LABS: PH 7 (5-8); SQUAMOUS EPITHELIAL None Seen /hpf (0-10); URINE APPEARANCE Clear (CLEAR/HAZY); URINE BACTERIA None Seen /hpf (NONE SEEN); URINE BILIRUBIN Negative (NEGATIVE); URINE BLOOD Negative (NEGATIVE); URINE COLOR Straw (YELLOW); URINE GLUCOSE Negative (NEGATIVE); URINE KETONE Negative (NEGATIVE); URINE LEUKOCYTE ESTERASE Negative (NEGATIVE); URINE NITRATE Negative (NEGATIVE); URINE PROTEIN(semi-quant) Negative (NEGATIVE); URINE RBC None Seen /hpf (0-2); URINE UROBILINOGEN Negative (NEGATIVE)
[2021-09-05 03:49] VITALS: BP 116/64; PULSE 72; TEMP 97.8
--- NOTE | 2021-09-05 05:53 | NUR ---
Patient has denied having pain and discomfort this shift. Continues on Lasix drip per orders. Generalized edema continues. Patient denies SOB and and dyspnea. Voices no questions, needs, or concerns at this time. In bed with call light within reach.
[2021-09-05 07:22] LABS: CALCIUM 8.3 mg/dL (8.4-10.2); CREATININE, serum 2.16 mg/dL (0.72-1.25); MAGNESIUM 2.3 mg/dL (1.6-2.6); POTASSIUM 3.7 mmol/L (3.5-4.5)
[2021-09-05 07:24] LABS: HEMOGLOBIN 10.5 g/dl (13.5-18.0); MEAN CELL VOLUME 78 fl (80.0-100.0); MEAN CORPUSCULAR HEMOGLOBIN 22 pg (27-31); MEAN CORPUSCULAR HGB CONC 29 g/dl (33.0-37.0); MEAN PLATELET VOLUME 11.5 fl (7.4-10.4); PLATELET COUNT 199 K/mm3 (130-400); RED BLOOD COUNT 4.71 M/mm3 (4.20-5.60); REDCELL DISTRIBUTION WIDTH-CV 20.9 % (11.5-14.5)
[2021-09-05 07:26] LABS: HEMATOCRIT 36.8 % (42.0-52.0)
[2021-09-05 07:42] LABS: BAND 2 % (0-10); EOSINOPHIL 1 % (0-4); HYPOCHROMIA 1+; LYMPHOCYTE 6 % (20.0-51.0); NEUTROPHILS 83 % (42.0-75.2); NUCLEATED RED BLOOD CELL 1 (0-6); PLATELET ESTIMATE NORMAL (NORMAL); TARGET CELLS 1+
--- NOTE | 2021-09-05 08:19 | NUR ---
PT SITTING UP IN BED. MORNING MEDICATIONS GIVEN. SHIFT ASSESSMENT COMPLETED. PT CURRENTLY HAS LASIX GTT INFUSING AT 5.5 ML/HR. INSULIN PUMP IN PLACE. L THORACENTESIS SITE C/D/I WITH BANDAID IN PLACE. PT STATES HIS BREATHING FEELS IMPROVED AND HE IS NOT COUGHING MUCH. SCDs IN PLACE. DENIES ANY PAIN OR NEEDS AT THIS TIME. WILL CONTINUE TO MONITOR.
[2021-09-05 08:28] VITALS: BP 109/55; PULSE 70; TEMP 98
--- NOTE | 2021-09-05 09:23 | NUR ---
PT DELIVERED A 2 UNIT BOLUS OF INSULIN FROM PUMP AT THIS TIME.
--- NOTE | 2021-09-05 10:55 | NUR ---
PT WAS UP WITH PHYSICAL THERAPY WHEN TRANSFERRING INTO THE BATHROOM, PT BECAME LIGHT HEADED AND PHYSICAL THERAPIST HAD TO USE MAXIMUM ASSIST TO GET HIM ON THE COMMODE. VSS WITH B/P 104/46 AND PULSE IN THE 70s. BLOOD GLUCOSE OBTAINED AT 104. PT STATES HE FEELS MUCH BETTER AFTER RESTING ON THE TOILET. PT AMBULATES BACK TO BED WELL. CURRENTLY RESTING IN BED WITH CALL LIGHT WITHIN REACH. WILL CONTINUE TO MONITOR.
[2021-09-05 12:00] VITALS: BP 120/55; PULSE 73; TEMP 97.8
--- NOTE | 2021-09-05 12:55 | NUR ---
Discussed patient wishes about discharge plan with SW. expressed desire for patient to go to SNF but patient verbalized just wanting to go home. He did agree to try home health/palliative care services.
[2021-09-05] MEDS ORDERED: KEPPRA 500MG500 MG PO (14:06)
[2021-09-05] MEDS ORDERED: TOPROL XL 50MG50 MG PO (14:06)
[2021-09-05] MEDS ORDERED: LASIX 80MG TABL80 MG PO (14:06)
[2021-09-05] MEDS ORDERED: FLORINEF ACETA0.1 MG PO (14:07)
--- NOTE | 2021-09-05 15:24 | NUR ---
IV D/C. TELE D/C. DISCHARGE INSTRUCTIONS GIVEN, AT BEDSIDE, ALL QUESTIONS ANSWERED. PT BELONGINGS PACKED UP, PT ESCORTED DOWN TO VEHICLE AT THIS TIME. WILL D/C FROM SYSTEM.
--- NOTE | 2021-09-05 15:32 | NUR ---
Phuong at [facility] contacted NILES and was concerned there was not a skillable need for patient based on PT/OT recommendations for return home. Giorgi at [facility] thought they could meet patient's needs and likely accept. Rock Contractor and Palliative RN met with patient and patient's to discuss discharge planning. Patient and do not appear to be on the same page as patient's would prefer patient go to SNF, however patient was asked multiple times about discharge to SNF and he is adamant that he wants to return home. Patient is agreeable to palliative Home Health through [facility]. NILES updated Hospitalist. NILES also contacted Tae at [facility] and faxed referral. Tae advised she can accept and will contact patient's PCP. NILES faxed discharge orders.
== END 2021-09-05 15:26 | disposition home health service (06) | DRG 100 ==
LOC: COL.ER 00:04 → SURG 04:01
PROVIDERS: Emergency Medicine; Internal Medicine; Physician Assistant; ADMIT Student in an Organized Health Care Education/Training Program
PROC: 0W9B3ZZ Drainage of Left Pleural Cavity, Percutaneous Approach (ICD-10-PCS; principal; 2021-09-04)
DX: R56.9 Unspecified convulsions (principal); I50.43 Acute on chronic combined systolic (congestive) and diastolic (congestive) heart failure; N17.9 Acute kidney failure, unspecified; I13.0 Hypertensive heart and chronic kidney disease with heart failure and stage 1 through stage 4 chronic kidney disease, or unspecified chronic kidney disease; J90 Pleural effusion, not elsewhere classified; I95.1 Orthostatic hypotension; I25.5 Ischemic cardiomyopathy; E10.22 Type 1 diabetes mellitus with diabetic chronic kidney disease; N18.30 Chronic kidney disease, stage 3 unspecified; E10.311 Type 1 diabetes mellitus with unspecified diabetic retinopathy with macular edema; I27.20 Pulmonary hypertension, unspecified; E78.5 Hyperlipidemia, unspecified; F32.A Depression, unspecified; F41.9 Anxiety disorder, unspecified; D64.9 Anemia, unspecified; E10.319 Type 1 diabetes mellitus with unspecified diabetic retinopathy without macular edema; E10.42 Type 1 diabetes mellitus with diabetic polyneuropathy; I25.10 Atherosclerotic heart disease of native coronary artery without angina pectoris; Z20.822 Contact with and (suspected) exposure to COVID-19; Z96.41 Presence of insulin pump (external) (internal); Z95.810 Presence of automatic (implantable) cardiac defibrillator; Z79.01 Long term (current) use of anticoagulants; Z79.82 Long term (current) use of aspirin; I25.2 Old myocardial infarction; Z88.2 Allergy status to sulfonamides; Z86.718 Personal history of other venous thrombosis and embolism; Z95.1 Presence of aortocoronary bypass graft; Z23 Encounter for immunization
CPT/HCPCS: 99232-AI; 99233-AI; 99239; A9575; J1940; J1953

== ENCOUNTER → 2021-09-09 | Outpatient (CLI) | payer MEDICARE, BC ==
[~2021-09-09] MED LIST changes: +FLORINEF ACETA0.1 MG PO; +KEPPRA 500MG500 MG PO; +LASIX 80MG TABL80 MG PO
[2021-09-09 15:09] LABS: INR 1.5 (0.8-3.0); PROTHROMBIN TIME 17.4 SECONDS (9.7-12.8)
[2021-09-09 15:44] LABS: CALCIUM 8.3 mg/dL (8.4-10.2); CREATININE, serum 2.17 mg/dL (0.72-1.25); MAGNESIUM 2.2 mg/dL (1.6-2.6)
== END ==
LOC: COL.LAB 14:11
PROVIDERS: Internal Medicine
DX: I50.9 Heart failure, unspecified (principal)